=== PATIENT | male | born 1960 | race Caucasian/White ===

== ENCOUNTER 2016-10-14 21:22 | Emergency (ER) | payer BC ==
[2016-10-14] MEDS ORDERED: Albuterol/Ipratropium 3.0-0.5 MG/3 ML Neb Soln NEB ONE (21:35)
[2016-10-14] MEDS ORDERED: guaiFENesin 600 MG Tab.ER PO ONE (21:35)
[2016-10-14] MEDS ORDERED: Sodium Chloride 0.9% 1,000 ML IV ONE (21:35)
[2016-10-14] MEDS ORDERED: methylPREDNISolone Sodium Succinate 125 MG/2 ML SDV IVPUSH ONE (21:35)
--- NOTE | 2016-10-14 21:48 | EDM.PDOC ---
ED HPI GENERAL MEDICAL PROBLEM - General Chief Complaint: Respiratory Problem Stated Complaint: MEDICINE Time Seen by Provider: 10/14/16 21:37 Source of Information: Reports: Patient History Limitations: Reports: No Limitations - History of Present Illness INITIAL COMMENTS - FREE TEXT/NARRATIVE: History of present illness: [56-year-old male presenting with complaints of shortness of breath, and a dark green productive sputum cough. Indicates he was seen in doctor's office on Saturday and given a shot of steroid and it was indicated that he might need antibiotics to get better. Patient comes in today indicating he feels not only not better but significantly worse.] Review of systems: As per history of present illness and below otherwise all systems reviewed and negative. Past medical history: As per history of present illness and as reviewed below otherwise noncontributory. Surgical history: As per history of present illness and as reviewed below otherwise noncontributory. Social history: No reported history of drug or alcohol abuse. Family history: As per history of present illness and as reviewed below otherwise noncontributory. Physical exam: HEENT: Atraumatic, normocephalic, pupils reactive, negative for conjunctival pallor or scleral icterus, mucous membranes moist, throat clear, neck supple, nontender, trachea midline. Lungs: Diminished throughout with coarse bronchial vesicular sounds that improve somewhat with a loose wet cough chest nontender. Heart: S1S2, regular, negative for clicks, rubs, or JVD. Abdomen: Soft, nondistended, nontender. Negative for masses or hepatosplenomegaly. Negative for costovertebral tenderness. Pelvis: Stable nontender. Genitourinary: Deferred. Rectal: Deferred. Extremities: Atraumatic, negative for cords or calf pain. Neurovascular unremarkable. Neuro: Awake, alert, oriented. Cranial nerves II through XII unremarkable. Cerebellum unremarkable. Motor and sensory unremarkable throughout. Exam nonfocal. Diagnostics: [] Therapeutics: [DuraNeb, liter of saline, Solu-Medrol] Impression: [Bronchitis in the presence of chronic smoker] Plan: [Augmentin, Medrol Dosepak, Followup with primary care provider] Definitive disposition and diagnosis as appropriate pending reevaluation and review of above. Bilateral Thoracic Pain Score (Numeric/FACES): 7 - Related Data Allergies Allergy/AdvReac Type Severity Reaction Status Date / Time aloe vera Allergy Rash Verified 10/14/16 21:27 [From Lanacane with Aloe] bacitracin Allergy Rash Verified 10/14/16 21:27 benzethonium chloride Allergy Rash Verified 10/14/16 21:27 [From Lanacane with Aloe] benzocaine Allergy Rash Verified 10/14/16 21:27 [From Lanacane with Aloe] cephalexin monohydrate Allergy Other Verified 10/14/16 21:27 [From Keflex] Sulfa (Sulfonamide Allergy Other Verified 10/14/16 21:27 Antibiotics) cement dust Allergy Rash Uncoded 10/14/16 21:27 Home Meds: Home Meds Adalimumab [Humira] 1 injection IM ASDIRECTED 09/28/14 [History] Albuterol [Proair HFA] 1 - 2 inh PO ASDIRECTED PRN 09/28/14 [History] Aspirin [Halfprin] 81 mg PO DAILY 09/28/14 [History] Folic Acid 2 mg PO DAILY 09/28/14 [History] Hydrochlorothiazide/Lisinopril [Lisinopril-HCTZ 20-25 MG] 1 tab PO BRK 09/28/14 [History] LORazepam [Ativan] 1 mg PO BEDTIME PRN 09/28/14 [History] Methotrexate Sodium [Methotrexate] 15 mg PO WEEKLY 09/28/14 [History] Omeprazole 20 mg PO DAILY 09/28/14 [History] amLODIPine Besylate [Amlodipine Besylate] 2.5 mg PO BRK 09/28/14 [History] Erythromycin Base [Erythromycin 0.5% Ophth Oint] 1 applic EYEBOTH QIDACANDBED [History] Famotidine 20 mg PO DAILY 01/25/16 [History] Hydrocodone/Acetaminophen [[place] 10-325] 1 each PO BID PRN 01/25/16 [History] Hydrocodone/Acetaminophen [[place] 10-325] 1 tab PO BID PRN 01/25/16 [History] Ciprofloxacin HCl [Cipro] 500 mg PO BID #14 tablet 01/28/16 [Rx] Prednisone [IJD: Prednisone] 10 mg PO DAILY 15 Days 01/28/16 [Rx] Prednisone [IMW: predniSONE] 40 mg PO WITHBREAKFAST #10 tab 01/28/16 [Rx] metroNIDAZOLE [Flagyl] 500 mg PO Q12H #14 tablet 01/28/16 [Rx] Past Medical History HEENT History: Reports: Impaired Vision Cardiovascular History: Reports: Hypertension Gastrointestinal History: Reports: Other (See Below) Other Gastrointestinal History: Crohn's Musculoskeletal History: Reports: Back Pain, Chronic - Past Surgical History GI Surgical History: Reports: Cholecystectomy Social & Family History - Family History Family Medical History: Noncontributory - Tobacco Use Smoking Status *Q: Current Every Day Smoker Years of Tobacco use: 40 Packs/Tins Daily: 1 - Alcohol Use Days Per Week of Alcohol Use: 3 Number of Drinks Per Day: 8 Total Drinks Per Week: 24 - Recreational Drug Use Recreational Drug Use: No Drug Use in Last 12 Months: No ED ROS GENERAL - Review of Systems Review Of Systems: See Below (The history of present illness) ED EXAM, GENERAL - Physical Exam Exam: See Below (See history of present illness) Course - Vital Signs Last Recorded V/S: Last Vital Signs Temp 36.6 C 10/14/16 21:27 Pulse 103 H 10/14/16 21:27 Resp 20 10/14/16 21:27 BP 144/82 H 10/14/16 21:27 Pulse Ox 93 L 10/14/16 21:27 - Orders/Labs/Meds Orders: Active Orders 24 hr Category Date Time Status RT Aerosol Therapy [RC] ASDIRECTED Care 10/14/16 21:35 Ordered Sodium Chloride 0.9% [Normal Saline] 1,000 ml Med 10/14/16 21:35 Ordered IV STAT Medication Orders Sodium Chloride (Normal Saline) 1,000 mls @ 999 mls/hr IV STAT ONE Stop: 10/14/16 22:35 Meds: Medications Generic Name Dose Route Start Last Admin Trade Name Freq PRN Reason Stop Dose Admin Sodium Chloride 1,000 mls @ 999 mls/hr 10/14/16 21:35 Normal Saline IV 10/14/16 22:35 STAT ONE Discontinued Medications Generic Name Dose Route Start Last Admin Trade Name Freq PRN Reason Stop Dose Admin Albuterol/Ipratropium 3 ml 10/14/16 21:35 Duoneb 3.0-0.5 Mg/3 Ml NEB 10/14/16 21:36 ONETIME ONE Guaifenesin 1,200 mg 10/14/16 21:35 Mucinex PO 10/14/16 21:36 ONETIME ONE Methylprednisolone Sodium Succinate 125 mg 10/14/16 21:35 Solu-Medrol IVPUSH 10/14/16 21:36 ONETIME ONE Departure - Departure Time of Disposition: 21:39 Disposition: Home, Self-Care 01 Condition: good (z) Clinical Impression: Bronchitis - Discharge Information Instructions: Acute Bronchitis, [id number] Forms: ED Department Discharge Additional Instructions: The following information is given to patients seen in the emergency department who are being discharged to home. This information is to outline your options for follow-up care. We provide all patients seen in our emergency department with a follow-up referral. The need for follow-up, as well as the timing and circumstances, are variable depending upon the specifics of your emergency department visit. If you don't have a primary care physician on staff, we will provide you with a referral. We always advise you to contact your personal physician following an emergency department visit to inform them of the circumstance of the visit and for follow-up with them and/or the need for any referrals to a consulting specialist. The emergency department will also refer you to a specialist when appropriate. This referral assures that you have the opportunity for follow-up care with a specialist. All of these measure are taken in an effort to provide you with optimal care, which includes your follow-up. Under all circumstances we always encourage you to contact your private physician who remains a resource for coordinating your care. When calling for follow-up care, please make the office aware that this follow-up is from your recent emergency room visit. If for any reason you are refused follow-up, please contact the [facility] Emergency Department at and asked to speak to the emergency department charge nurse. Take medication as directed Followup with your primary care provider in one to 2 days Return to ED as needed as discussed - My Orders Last 24 Hours: My Active Orders 10/14/16 21:35 RT Aerosol Therapy [RC] ASDIRECTED Sodium Chloride 0.9% [Normal Saline] 1,000 ml IV STAT - Assessment/Plan Last 24 Hours: My Active Orders 10/14/16 21:35 RT Aerosol Therapy [RC] ASDIRECTED Sodium Chloride 0.9% [Normal Saline] 1,000 ml IV STAT
[2016-10-15 03:04] VITALS: BP 120/71
== END 2016-10-14 22:50 | disposition home or self-care (01) ==
LOC: MW.ED 21:22
DX: J40 Bronchitis, not specified as acute or chronic (principal); I10 Essential (primary) hypertension; F17.210 Nicotine dependence, cigarettes, uncomplicated; Z90.49 Acquired absence of other specified parts of digestive tract; Z79.82 Long term (current) use of aspirin; Z79.899 Other long term (current) drug therapy; Z88.1 Allergy status to other antibiotic agents; Z88.2 Allergy status to sulfonamides; Z91.048 Other nonmedicinal substance allergy status
CPT/HCPCS: 96361; 96374; 99283; A9270; J2930; J7040; 99284

== ENCOUNTER 2017-10-23 06:39 | Day surgery (SDC) | payer BC ==
[~2017-10-23 06:39] MED LIST: Lactated Ringers 1,000 ML IV SCH
--- NOTE | 2017-10-23 07:09 | PCM.PREANE ---
Preanesthetic Assessment - Anesthesia/Transfusion/Family Hx Anesthesia History: Prior Anesthesia Without Reaction Other Type of Anesthesia Reaction Comment: Reports awoke during endoscopy and colonoscopy in [place] Family History of Anesthesia Reaction: No Transfusion History: No Prior Transfusion(s) - Review of Systems General: No Symptoms Pulmonary: No Symptoms Cardiovascular: No Symptoms Gastrointestinal: No Symptoms Neurological: No Symptoms Other: Reports: None - Physical Assessment NPO Status Date: 10/29/17 Height: 1.73 m Weight: 80.286 kg ASA Class: 2 Airway Class: Mallampati = 1 Dentition: Reports: Normal Dentition ROM/Head Extension: Full Lungs: Clear to Auscultation, Normal Respiratory Effort Cardiovascular: Regular Rate, Regular Rhythm - Allergies Allergies/Adverse Reactions: Allergies Allergy/AdvReac Type Severity Reaction Status Date / Time aloe vera Allergy Rash Verified 10/18/17 11:07 [From Lanacane with Aloe] bacitracin Allergy Rash Verified 10/18/17 11:07 benzethonium chloride Allergy Rash Verified 10/18/17 11:07 [From Lanacane with Aloe] benzocaine Allergy Rash Verified 10/18/17 11:07 [From Lanacane with Aloe] cephalexin monohydrate Allergy Other Verified 10/18/17 11:07 [From Keflex] Sulfa (Sulfonamide Allergy Other Verified 10/18/17 11:07 Antibiotics) cement dust Allergy Rash Uncoded 10/18/17 11:07 - Blood Blood Available: No - Anesthesia Plan Pre-Op Medication Ordered: None - Acknowledgements Anesthesia Type Planned: MAC Pt an Appropriate Candidate for the Planned Anesthesia: Yes Alternatives and Risks of Anesthesia Discussed w Pt/Guardian: Yes Pt/Guardian Understands and Agrees with Anesthesia Plan: Yes PreAnesthesia Questionnaire HEENT History: Reports: Other (See Below) Other HEENT History: wears glasses, gets frequent "stys" in his eyes (uses tobradex ointment) Cardiovascular History: Reports: Hypertension Respiratory History: Reports: Other (See Below) Other Respiratory History: smokes 2 PPD for 35 years- currently has broken rib Gastrointestinal History: Reports: GERD, Inflammatory Bowel Disease Other Gastrointestinal History: has Crohns disease Musculoskeletal History: Reports: Fracture, Gout, RA Other Musculoskeletal History: currently has fractured rib Neurological History: Reports: Headaches, Chronic Immunologic History: Reports: Immunosuppression Dermatologic History: Reports: Other (See Below) Other Dermatologic History: 0ccasional dermatitis - Past Surgical History GI Surgical History: Reports: Cholecystectomy Male Surgical History: Reports: Vasectomy Dermatological Surgical History: Reports: Other (See Below) - SUBSTANCE USE Smoking Status *Q: Current Every Day Smoker Tobacco Use Within Last Twelve Months: Cigarettes Recreational Drug Use History: No - HOME MEDS Home Medications: Home Meds Adalimumab [Humira] 1 injection IM ASDIRECTED 09/28/14 [History] Aspirin [Halfprin] 81 mg PO DAILY 09/28/14 [History] Folic Acid 2 mg PO DAILY 09/28/14 [History] Omeprazole 20 mg PO DAILY 09/28/14 [History] Hydrocodone/Acetaminophen [[place] 10-325] 1 tab PO BID PRN 01/25/16 [History] Dexamethasone/Tobramycin [Tobradex Ophth Oint] 1 applic EYEBOTH ASDIRECTED PRN 10/18/17 [History] Lisinopril 20 mg PO DAILY 10/18/17 [History] Methotrexate Sodium/PF [Methotrexate 50 mg/2 ml Vial] 50 mg IM WEEKLY 10/18/17 [ History] Sildenafil Citrate [Sildenafil] 80 mg PO ASDIRECTED PRN 10/18/17 [History] predniSONE [Prednisone] 5 mg PO DAILY PRN 10/18/17 [History] - CURRENT (IN HOUSE) MEDS Current Meds: Current Medications Lactated Ringer's (Ringers, Lactated) 1,000 mls @ 125 mls/hr IV ASDIRECTED [facility]
[2017-10-23] MEDS ORDERED: Bupivacaine 0.5% 30 ML SDV ONE (07:17)
[2017-10-23] MEDS ORDERED: Midazolam 1 MG/ML 2 ML SDV ONE (07:23)
[2017-10-23] MEDS ORDERED: fentaNYL 100 MCG/2 ML SDV ONE (07:23)
[2017-10-23] MEDS ORDERED: Propofol 200 MG/20 ML SDV ONE ×2 (07:23→08:12)
[2017-10-23] MEDS ORDERED: Ondansetron 4 MG/2 ML SDV ONE (07:24)
[2017-10-23 07:45] VITALS: BP 137/80
[2017-10-23] MEDS ORDERED: Lidocaine 1% 20 ML MDV ONE (07:45)
[2017-10-23] MEDS ORDERED: ePHEDrine 50 MG/ML SDV ONE (08:18)
--- NOTE | 2017-10-23 08:36 | PCM.OPNOTE ---
- General Post-Op/Procedure Note Date of Surgery/Procedure: 10/23/17 Operative Procedure(s): Excision 3 x 3.5 cm right posterior neck mass Pre Op Diagnosis: Enlarging right posterior neck mass Post-Op Diagnosis: Same Anesthesia Technique: Local, MAC (ASA II) Primary Surgeon: Fox Ramos Fluid Replacement, Intraop: 800 EBL in mLs: 5 Condition: Good Free Text/Narrative:: DICTATION [id number] CPT CODE 18419
[2017-10-23] MEDS ORDERED: Lactated Ringers 1,000 ML IV SCH (08:45)
--- NOTE | 2017-10-23 08:50 | PCM48HPAN ---
Post Anesthesia Note - EVALUATION WITHIN 48HRS OF ANESTHETIC Vital Signs in Normal Range: Yes Patient Participated in Evaluation: Yes Respiratory Function Stable: Yes Airway Patent: Yes Cardiovascular Function Stable: Yes Hydration Status Stable: Yes Pain Control Satisfactory: Yes Nausea and Vomiting Control Satisfactory: Yes Mental Status Recovered: Yes Resp Rate: 16 - COMMENTS/OBSERVATIONS Free Text/Narrative:: phase 2 ready, bypassed phase 1 PACU.
--- NOTE | 2017-10-23 09:22 | OR ---
SURGEON: Fox Ramos M.D. DATE OF PROCEDURE: 10/23/2017 OPERATION PERFORMED: Excision of 3 x 3.5 cm right posterior neck mass. ANESTHESIA: Local with MAC. ASA CLASSIFICATION: II. PREOPERATIVE DIAGNOSIS: Enlarging right posterior neck mass. POSTOPERATIVE DIAGNOSIS: Enlarging right posterior neck mass. ESTIMATED BLOOD LOSS: 5 mL. INTRAOPERATIVE FLUID REPLACEMENT: 800 mL of crystalloid. DESCRIPTION OF PROCEDURE: The patient was taken to the operating room and placed on the operating table in the left lateral decubitus position. Time-out was called for appropriate identification of the patient and procedure. Surgical site had been marked prior to the patient entering the operating room. Monitored anesthesia care was provided. The surgical site was prepped with DuraPrep solution. Sterile drapes were applied. Field block anesthesia was accomplished with 5 mL of 1% Xylocaine and 5 mL of 0.5% Marcaine. The skin incision was made directly over the mass and deepened down to the mass. Clinically, this had the appearance of an inclusion cyst. Using a combination of sharp dissection and electrocautery, the mass was removed. Bleeding sites were electrocoagulated. The wound was inspected for hemostasis, and no bleeding was noted. There was no spill of sebaceous cyst material. The incision was then closed in 2 layers approximating the subcutaneous tissue with running 3-0 Vicryl, and the skin edges were reapproximated with subcuticular 4-0 Monocryl reinforced with half-inch Steri- Strips. Sterile Tegaderm pad was placed as a dressing. Sponge, needle, and instrument counts were all correct. The patient tolerated the procedure well and was taken back to Day Surgery in satisfactory condition. ASHLI / SANTY /[id number]
== END 2017-10-23 09:05 | disposition home or self-care (01) ==
LOC: MW.SDS 06:39
PROVIDERS: ATTEND Surgery
DX: L72.3 Sebaceous cyst (principal); I10 Essential (primary) hypertension; F17.210 Nicotine dependence, cigarettes, uncomplicated; K21.9 Gastro-esophageal reflux disease without esophagitis; Z79.82 Long term (current) use of aspirin; Z79.899 Other long term (current) drug therapy; Z88.4 Allergy status to anesthetic agent; Z88.1 Allergy status to other antibiotic agents; Z88.2 Allergy status to sulfonamides; Z91.048 Other nonmedicinal substance allergy status
CPT/HCPCS: 11424; 12042; 88304; J2250; J2405; J3010; J7120; 00300; J2704

== ENCOUNTER 2018-07-25 10:38 | Day surgery (SDC) | payer BC ==
--- NOTE | 2018-07-25 11:27 | PCM.PREANE ---
Preanesthetic Assessment - Procedure Proposed Procedure: colonoscopy - Anesthesia/Transfusion/Family Hx Anesthesia History: Prior Anesthesia Without Reaction Other Type of Anesthesia Reaction Comment: Reports awoke during endoscopy and colonoscopy in [place] Family History of Anesthesia Reaction: Yes (sister has complications but they are unknown) Transfusion History: No Prior Transfusion(s) - Review of Systems General: No Symptoms Pulmonary: Other (smoker 1ppk/day, frequent rhinitis) Cardiovascular: No Symptoms, Other (HTN) Gastrointestinal: Abdominal Pain, Other (chrons disease, GERD) Neurological: Other (RA, chronic pain on narcotics, migraines) Other: Reports: Neck Pain - Physical Assessment Height: 5 ft 7 in Weight: 81.193 kg ASA Class: 2 Mental Status: Alert & Oriented x3 Airway Class: Mallampati = 2 Dentition: Reports: Normal Dentition Thyro-Mental Finger Breadths: 3 Mouth Opening Finger Breadths: 3 ROM/Head Extension: Full Lungs: Clear to Auscultation Cardiovascular: Regular Rate - Allergies Allergies/Adverse Reactions: Allergies Allergy/AdvReac Type Severity Reaction Status Date / Time aloe vera Allergy Rash Verified 07/21/18 12:15 [From Lanacane with Aloe] bacitracin Allergy Rash Verified 07/21/18 12:14 benzethonium chloride Allergy Rash Verified 07/21/18 12:14 [From Lanacane with Aloe] benzocaine Allergy Rash Verified 07/21/18 12:14 [From Lanacane with Aloe] cephalexin monohydrate Allergy Other Verified 07/21/18 12:14 [From Keflex] neomycin Allergy Rash Verified 07/21/18 12:14 [From Neosporin ([id number])] polymyxin B Allergy Rash Verified 07/21/18 12:14 [From Neosporin ([id number])] Sulfa (Sulfonamide Allergy Other Verified 07/21/18 12:14 Antibiotics) cement dust Allergy Rash Uncoded 10/18/17 11:07 - Blood Blood Available: No Product(s) Available: None - Anesthesia Plan Pre-Op Medication Ordered: None - Acknowledgements Anesthesia Type Planned: MAC Pt an Appropriate Candidate for the Planned Anesthesia: Yes Alternatives and Risks of Anesthesia Discussed w Pt/Guardian: Yes Pt/Guardian Understands and Agrees with Anesthesia Plan: Yes PreAnesthesia Questionnaire HEENT History: Reports: Hard of Hearing Other HEENT History: hard of hearing in right ear, wears glasses Cardiovascular History: Reports: Hypertension, Other (See Below) Other Cardiovascular History: hx of rheumatic fever Respiratory History: Reports: Other (See Below) Other Respiratory History: smokes 2 PPD for 35 years- currently has broken rib Gastrointestinal History: Reports: Chronic Diarrhea, GERD, Inflammatory Bowel Disease Other Gastrointestinal History: has Crohns disease Musculoskeletal History: Reports: Back Pain, Chronic, Fracture, Gout, Neck Pain , Chronic, RA Other Musculoskeletal History: hx of fx arm Neurological History: Reports: Migraines Immunologic History: Reports: Immunosuppression Dermatologic History: Reports: Psoriasis Other Dermatologic History: 0ccasional dermatitis - Past Surgical History GI Surgical History: Reports: Cholecystectomy, Colonoscopy, EGD Male Surgical History: Reports: Vasectomy Dermatological Surgical History: Reports: Other (See Below) - SUBSTANCE USE Smoking Status *Q: Current Every Day Smoker Tobacco Use Within Last Twelve Months: Cigarettes Recreational Drug Use History: No - HOME MEDS Home Medications: Home Meds Aspirin [Halfprin] 81 mg PO DAILY 09/28/14 [History] Folic Acid 2 mg PO DAILY 09/28/14 [History] Omeprazole 20 mg PO DAILY 09/28/14 [History] Hydrocodone/Acetaminophen [[place] 10-325] 1 tab PO BID PRN 01/25/16 [History] Lisinopril 40 mg PO QAM 10/18/17 [History] Methotrexate Sodium/PF [Methotrexate 50 mg/2 ml Vial] 50 mg IM WEEKLY 10/18/17 [ History] Sildenafil Citrate [Sildenafil] 80 mg PO ASDIRECTED PRN 10/18/17 [History] predniSONE [Prednisone] 5 mg PO DAILY PRN 10/18/17 [History] Albuterol Sulfate [Proair Hfa] 2 puff INH Q4H PRN 07/21/18 [History] Halobetasol Propionate 1 applic TOP BID PRN 07/21/18 [History] - CURRENT (IN HOUSE) MEDS Current Meds: Current Medications Lactated Ringer's (Ringers, Lactated) 1,000 mls @ 125 mls/hr IV ASDIRECTED REPLACED BY [facility]
[2018-07-25] MEDS ORDERED: Midazolam 1 MG/ML 2 ML SDV ONE (12:39)
[2018-07-25] MEDS ORDERED: fentaNYL 100 MCG/2 ML SDV ONE (12:40)
[2018-07-25] MEDS ORDERED: Propofol 200 MG/20 ML SDV ONE ×2 (12:41→13:14)
[2018-07-25] MEDS ORDERED: Lidocaine 2% 5 ML SDV ONE (12:41)
[2018-07-25] MEDS ORDERED: Dexamethasone 4 MG/ML 5 ML MDV ONE (12:53)
--- NOTE | 2018-07-25 13:35 | PCM.OPNOTE ---
- General Post-Op/Procedure Note Date of Surgery/Procedure: 07/25/18 Operative Procedure(s): Colonoscopy with random biopsies from the cecum, ascending colon, transverse colon, sigmoid colon and rectum. Pre Op Diagnosis: Personal history of Crohn's disease Post-Op Diagnosis: Pancolonic diverticulosis Anesthesia Technique: MAC (ASA II) Primary Surgeon: Fox Ramos Wet End Helper: Lisa Hernández Condition: Good Free Text/Narrative:: DICTATION [id number] CPT CODE 17478
[2018-07-25] MEDS ORDERED: Lactated Ringers 1,000 ML IV SCH (13:45)
--- NOTE | 2018-07-25 13:55 | OR ---
SURGEON: Fox Ramos M.D. DATE OF PROCEDURE: 07/25/2018 OPERATION PERFORMED: Colonoscopy with random biopsies. DESIGN ENGINEERING MANAGER: PATRICK Pan student. ANESTHESIA: MAC. ASA CLASSIFICATION: II. PREOPERATIVE DIAGNOSIS: Personal history of active Crohn disease. POSTOPERATIVE DIAGNOSIS: No acute inflammatory process. DESCRIPTION OF PROCEDURE: The patient was taken to the endoscopy room and positioned on the endoscopy table in the left lateral decubitus position. Time-out was called for appropriate identification of the patient and procedure. Monitored anesthesia care was provided. The colonoscope was inserted into the rectum and advanced with minimal difficulty to the cecum where the colonoscope was retroflexed to visualize the ascending colon from below. The colonoscope was then straightened and slowly withdrawn. Random biopsies were obtained from the cecum, ascending colon, transverse colon, sigmoid colon, and rectum. No acute inflammatory changes or ulcerations were noted. In addition to postop diagnosis, does include pancolonic diverticulosis. Once the colonoscope was withdrawn to the rectum, multiple biopsies were again obtained to survey the level of activity of his Crohn disease. The colonoscope was then retroflexed to visualize the anal orifice from above. The patient does have some minor hemorrhoidal changes. No acute changes were noted. Certainly, no bleeding was noted. The colonoscope was then straightened, the rectum aspirated, and the colonoscope removed. The patient tolerated the procedure well and was taken to recovery room in stable condition. ASHLI MADERA /[id number]
--- NOTE | 2018-07-25 13:55 | PCM.POSTAN ---
POST ANESTHESIA ASSESSMENT - MENTAL STATUS Mental Status: Alert - VITAL SIGNS Pulse Rate: 74 SaO2: 98 Resp Rate: 16 Blood Pressure: 115/79 Temperature: 37 C - RESPIRATORY Respiratory Status: Respiratory Rate WNL - CARDIOVASCULAR CV Status: Pulse Rate WNL - GASTROINTESTINAL GI Status: No Symptoms - PAIN Pain Score: 0 - POST OP HYDRATION Hydration Status: Adequate & Stable - OBSERVATIONS Free Text/Narrative:: Doing well. No anesthesia problems noted.
--- NOTE | 2018-07-25 14:09 | PCM48HPAN ---
Post Anesthesia Note - EVALUATION WITHIN 48HRS OF ANESTHETIC Vital Signs in Normal Range: Yes Patient Participated in Evaluation: Yes Respiratory Function Stable: Yes Airway Patent: Yes Cardiovascular Function Stable: Yes Hydration Status Stable: Yes Pain Control Satisfactory: Yes Nausea and Vomiting Control Satisfactory: Yes Mental Status Recovered: Yes Pulse Rate: 74 SaO2: 97 Resp Rate: 16 Temperature: 37 C Blood Pressure: 115/79 - COMMENTS/OBSERVATIONS Free Text/Narrative:: Doing well. No problems noted at present. Discharged in stable condition.
[2018-07-25 14:36] VITALS: BP 153/77
== END 2018-07-25 14:10 | disposition home or self-care (01) ==
LOC: MW.SDS 10:38
PROVIDERS: ATTEND Surgery
DX: Z12.11 Encounter for screening for malignant neoplasm of colon (principal); K50.90 Crohn's disease, unspecified, without complications; K57.30 Diverticulosis of large intestine without perforation or abscess without bleeding; K64.9 Unspecified hemorrhoids; K21.9 Gastro-esophageal reflux disease without esophagitis; I10 Essential (primary) hypertension; F17.210 Nicotine dependence, cigarettes, uncomplicated; M54.17 Radiculopathy, lumbosacral region; M06.9 Rheumatoid arthritis, unspecified; Z88.1 Allergy status to other antibiotic agents; Z88.2 Allergy status to sulfonamides; Z88.8 Allergy status to other drugs, medicaments and biological substances; Z80.0 Family history of malignant neoplasm of digestive organs; Z79.82 Long term (current) use of aspirin; Z79.52 Long term (current) use of systemic steroids; Z79.899 Other long term (current) drug therapy
CPT/HCPCS: 45380; J1100; J2001; J2250; J2704; J3010; J7120; 88305

== ENCOUNTER 2021-03-24 15:08 | Observation (INO) | payer BC, MEDICAID ==
[2021-03-24] MEDS ORDERED: Aspirin 81 MG Tab.Chew PO ONE ×2 (15:55→15:57)
[2021-03-24] MEDS ORDERED: Morphine 4 MG/ML VIAL IVPUSH ONE ×2 (15:56→17:03)
[2021-03-24] MEDS ORDERED: Sodium Chloride 0.9% 1,000 ML IV ONE (15:58)
[2021-03-24 16:42] LABS: BLOOD UREA NITROGEN,BUN 8 mg/dL (7.0-18.0); CARBON DIOXIDE,CO2 24.4 mmol/L (21.0-32.0); CHLORIDE,CL 97 mmol/L (98-107); GLUCOSE RANDOM 107 mg/dL (74-106); POTASSIUM,K 3.6 mmol/L (3.5-5.1); SODIUM,NA 135 mmol/L (136-148)
--- NOTE | 2021-03-24 17:06 | CR ---
INDICATION: Chest pain TECHNIQUE: Portable upright AP view of the chest COMPARISON: AP chest radiograph 01/25/2016 FINDINGS: The lungs are clear. There is no sizable pleural effusion or pneumothorax. The cardiomediastinal silhouette is normal. The visualized osseous structures are unremarkable. IMPRESSION: No acute intrathoracic process. Dictated by Yoel Ocampo MD @ 03/24/2021 5:04:31 PM (Electronically Signed)
--- NOTE | 2021-03-24 17:38 | PCM.EKG ---
#1 Interpretation EKG Interpretation Comments: EKG done 03/24/2021 at 3:19 PM shows a sinus tachycardia heart rate 109 DC [address] [place] [address] elevation and no prior available at the immediate moment impression no acute injury
[2021-03-24] MEDS ORDERED: Iopamidol 755 MG/ML 500 ML Multipack Bottle IVPUSH STA (18:16)
[2021-03-24] MEDS ORDERED: Nicotine 14 MG/24 Hr Patch TRDERM ONE (18:37)
--- NOTE | 2021-03-24 19:27 | CT ---
INDICATION: Chest pain and elevated D-dimer TECHNIQUE: CT chest PE was acquired with 100 cc Omnipaque 350 IV contrast. COMPARISON: None. FINDINGS: Heart and vasculature: Contrast opacification of the pulmonary arterial tree is adequate. No sign of pulmonary embolism. Ascending thoracic aorta measures 4.1 centimeters with mild atherosclerosis including coronary atherosclerosis. Lungs and pleural: Trace left pleural fluid. Mild centrilobular emphysema. Trace discoid atelectasis. Lymph nodes/mediastinum: No mediastinal, hilar, or axillary adenopathy. Chest wall: No masses. Upper abdomen: Mild nonspecific fat stranding surrounding the kidneys. Bones: Unremarkable for age. IMPRESSION: 1. No evidence of pulmonary embolus. 2. Trace left pleural effusion. 3. Mild centrilobular emphysema. 4. Mild fusiform enlargement of the ascending thoracic aorta measuring 4.1 centimeters. Please note that all CT scans at this facility use dose modulation, iterative reconstruction, and/or weight-based dosing when appropriate to reduce radiation dose to as low as reasonably achievable. Dictated by Mamadou Cortez MD @ 03/24/2021 7:26:17 PM (Electronically Signed)
--- NOTE | 2021-03-24 19:47 | EDM.PDOC ---
ED HPI GENERAL MEDICAL PROBLEM - General Chief Complaint: Chest Pain Stated Complaint: CHEST PAIN Time Seen by Provider: 03/24/21 15:48 Source of Information: Reports: Patient History Limitations: Reports: No Limitations - History of Present Illness INITIAL COMMENTS - FREE TEXT/NARRATIVE: HISTORY AND PHYSICAL: History of present illness: Patient is a 61-year-old male who presents emergency room today with concern of chest pain that he describes as exertional and woke him up from sleep. Patient states that has been constant and does get worse with exertion. Patient states that he initially thought it was heartburn so did take Tums without relief of symptoms. Patient does have a history of hypertension, a 2 pack/day smoking history, GERD, and Crohn's/psoriasis. Patient states he did take 1 baby aspirin this morning. Patient states that he has some associated nausea but states that he has not vomited. Patient denies fever, chills, shortness of breath, or cough. Denies headache, neck stiff ness, change in vision, syncope, or near syncope. Denies nausea, vomiting, abdominal pain, diarrhea, constipation, or dysuria. Has not noted any blood in urine or stool. Patient has been eating and drinking appropriately. Review of systems: As per history of present illness and below otherwise all systems reviewed and negative. Past medical history: As per history of present illness and as reviewed below otherwise noncontributory. Surgical history: As per history of present illness and as reviewed below otherwise noncontributory. Social history: See social history for further information Family history: As per history of present illness and as reviewed below otherwise noncontributory. Physical exam: General: Patient is alert, oriented, and in no acute distress. Patient laying comfortably on exam table. Vitals stable and reviewed by me. HEENT: Atraumatic, normocephalic, pupils equal and reactive bilaterally, negative for conjunctival pallor or scleral icterus, mucous membranes moist, throat clear, neck supple, nontender, trachea midline. No drooling or trismus noted. No meningeal signs. No hot potato voice noted. Lungs: Clear to auscultation, breath sounds equal bilaterally, chest nontender. Heart: S1S2, regular rate and rhythm without overt murmur Abdomen: Soft, nondistended, nontender. Negative for masses or hepatosplenomegaly. Negative for costovertebral tenderness. Pelvis: Stable nontender. Genitourinary: Deferred. Rectal: Deferred. Skin: Intact, warm, dry. No lesions or rashes noted. Extremities: Atraumatic, negative for cords or calf pain. Neurovascular unremarkable. Neuro: Awake, alert, oriented. Cranial nerves II through XII unremarkable. Cerebellum unremarkable. Motor and sensory unremarkable throughout. Exam nonfocal. Medical Decision Making: Patient is a 61-year-old male, with a history of hypertension, 2 pack/day smoking history, GERD, and Crohn's/psoriasis, who presents emergency room today with concern of exertional chest pain. Upon arrival to the ED, patient is vitally stable. Patient is laying comfortably on exam table but he is holding his chest area. Exam is otherwise unremarkable. Will obtain cardiac evaluation, D-dimer, provide morphine, and reassess patient. See Dr. Sung's dictation for specific EKG interpretation. However, sinus tachycardia with a rate of 109 without STEMI. CBC does show a mild leukocytosis at 11.78, otherwise mild derangements of CBC unremarkable. D-dimer is elevated at 0.8 so will obtain angiography chest. Patient does have mild hyponatremia at 137, hypochloremia of 97. Troponin negative. Otherwise mild derangements of CMP unremarkable. Urinalysis is clear of infection. COVID-19 is negative. Chest x-ray shows no acute intrathoracic process. Angiography of the chest shows no evidence of pulmonary embolism. Trace left pleural effusion. Mild centrilobular emphysema. Mild fusiform enlargement of the ascending thoracic aorta measuring 4.1 cm. Repeat troponin negative. However, given patient's history, with concern of exertional chest pain, and coronary artery disease seen on imaging, did recommend admission for observation. Upon reevaluation of patient, he expresses some improvement of his symptoms with therapeutics today in the ED. I did call and speak to the hospitalist on-call, Dr. Gama, and thoroughly discussed patient's case. Will admit to observation to Dr. Gama on telemetry. Voices understanding and is agreeable to plan of care. Denies any further questions or concerns at this time. Diagnostics: EKG, CBC, CMP, UA, chest x-ray, troponin, D-dimer, angiography chest Therapeutics: Aspirin, morphine Impression: Chest pain, rule out ACS Plan: Admit to observation to Dr. Gama on telemetry Definitive disposition and diagnosis as appropriate pending reevaluation and review of above. chest Pain Score (Numeric/FACES): 6 - Related Data Allergies Allergy/AdvReac Type Severity Reaction Status Date / Time aloe vera Allergy Rash Verified 07/21/18 12:15 [From Lanacane with Aloe] bacitracin Allergy Rash Verified 07/21/18 12:14 benzethonium chloride Allergy Rash Verified 07/21/18 12:14 [From Lanacane with Aloe] benzocaine Allergy Rash Verified 07/21/18 12:14 [From Lanacane with Aloe] cephalexin monohydrate Allergy Other Verified 07/21/18 12:14 [From Keflex] neomycin Allergy Rash Verified 07/21/18 12:14 [From Neosporin ([id number])] polymyxin B Allergy Rash Verified 07/21/18 12:14 [From Neosporin ([id number])] Sulfa (Sulfonamide Allergy Other Verified 07/21/18 12:14 Antibiotics) cement dust Allergy Rash Uncoded 10/18/17 11:07 Home Meds: Home Meds Aspirin [Halfprin] 81 mg PO DAILY 09/28/14 [History] Folic Acid 2 mg PO DAILY 09/28/14 [History] Omeprazole 20 mg PO DAILY 09/28/14 [History] Hydrocodone/Acetaminophen [[place] 10-325] 1 tab PO BID PRN 01/25/16 [History] Lisinopril 40 mg PO QAM 10/18/17 [History] Methotrexate Sodium/PF [Methotrexate 50 mg/2 ml Vial] 50 mg IM WEEKLY 10/18/17 [History] Sildenafil Citrate 80 mg PO ASDIRECTED PRN 10/18/17 [History] predniSONE [Prednisone] 5 mg PO DAILY PRN 10/18/17 [History] Albuterol Sulfate [Proair Hfa] 2 puff INH Q4H PRN 07/21/18 [History] Halobetasol Propionate 1 applic TOP BID PRN 07/21/18 [History] Past Medical History HEENT History: Reports: Hard of Hearing Other HEENT History: hard of hearing in right ear, wears glasses Cardiovascular History: Reports: Hypertension, Other (See Below) Other Cardiovascular History: hx of rheumatic fever Respiratory History: Reports: Other (See Below) Other Respiratory History: smokes 2 PPD for 35 years- currently has broken rib Gastrointestinal History: Reports: Chronic Diarrhea, GERD, Inflammatory Bowel Disease Other Gastrointestinal History: has Crohns disease Musculoskeletal History: Reports: Back Pain, Chronic, Fracture, Gout, Neck Pain, Chronic, RA Other Musculoskeletal History: hx of fx arm Neurological History: Reports: Migraines Immunologic History: Reports: Immunosuppression Dermatologic History: Reports: Psoriasis Other Dermatologic History: 0ccasional dermatitis - Infectious Disease History Infectious Disease History: Reports: Chicken Pox - Past Surgical History GI Surgical History: Reports: Cholecystectomy, Colonoscopy, EGD Male Surgical History: Reports: Vasectomy Dermatological Surgical History: Reports: Other (See Below) Social & Family History - Family History Family Medical History: No Pertinent Family History ED ROS GENERAL - Review of Systems Review Of Systems: Comprehensive ROS is negative, except as noted in HPI. ED EXAM, GENERAL - Physical Exam Exam: See Below (see dictation) Course - Vital Signs Last Recorded V/S: Last Vital Signs Temp 97.9 F 03/24/21 21:07 Pulse 81 03/24/21 21:07 Resp 17 03/24/21 21:07 BP 144/86 H 03/24/21 21:07 Pulse Ox 98 03/24/21 21:07 - Orders/Labs/Meds Orders: Active Orders 24 hr Category Date Time Status Cardiac Monitoring [RC] . DIRECTED Care 03/24/21 15:55 Active Medication Orders Acetaminophen (Acetaminophen 325 Mg Tab) 650 mg PO Q4H PRN PRN Reason: Pain (Mild 1-3)/fever Albuterol/Ipratropium (Albuterol/Ipratropium 3.0-0.5 Mg/3 Ml Neb Soln) 3 ml NEB Q4HRRT PRN PRN Reason: Shortness Of Breath/wheezing Aspirin (Aspirin 81 Mg Tab.Ec) 81 mg PO DAILY MISBAH Pantoprazole Sodium 40 mg/ (Sodium Chloride) 10 mls @ 300 mls/hr IV Q24H MIS[facility] Morphine Sulfate (Morphine 2 Mg/Ml Syringe) 2 mg IVPUSH Q4H PRN PRN Reason: Pain (severe 7-10) Non-Formulary Medication (Lisinopril) 40 mg PO QAM MISBAH Ondansetron HCl (Ondansetron 4 Mg/2 Ml Sdv) 4 mg IVPUSH Q4H PRN PRN Reason: Pain Prednisone (Prednisone 5 Mg Tab) 5 mg PO DAILY PRN PRN Reason: Edema Labs: Laboratory Tests 03/24/21 03/24/21 03/24/21 Range/Units 15:45 15:45 15:45 WBC 11.78 H (4.0-11.0) K/uL RBC 3.82 L (4.50-5.90) M/uL Hgb 13.3 (13.0-17.0) g/dL Hct 39.1 (38.0-50.0) % MCV 102.4 H (80.0-98.0) fL MCH 34.8 H (27.0-32.0) pg MCHC 34.0 (31.0-37.0) g/dL RDW Std Deviation 52.2 (28.0-62.0) fl RDW Coeff of [place] 14 (11.0-15.0) % Plt Count 356 (150-400) K/uL MPV 9.20 (7.40-12.00) fL Neut % (Auto) 83.3 H (48.0-80.0) % Lymph % (Auto) 8.7 L (16.0-40.0) % [place] % (Auto) 7.6 (0.0-15.0) % Eos % (Auto) 0.2 (0.0-7.0) % Baso % (Auto) 0.2 (0.0-1.5) % Neut # (Auto) 9.8 H (1.4-5.7) K/uL Lymph # (Auto) 1.0 (0.6-2.4) K/uL [place] # (Auto) 0.9 H (0.0-0.8) K/uL Eos # (Auto) 0.0 (0.0-0.7) K/uL Baso # (Auto) 0.0 (0.0-0.1) K/uL Nucleated RBC % 0.0 /100WBC Nucleated RBCs # 0 K/uL INR 0.98 APTT (18.6-31.3) SEC D-Dimer, Quantitative (0.0-0.50) mg/L FEU Sodium 135 L (136-148) mmol/L Potassium 3.6 (3.5-5.1) mmol/L Chloride 97 L (98-107) mmol/L Carbon Dioxide 24.4 (21.0-32.0) mmol/L BUN 8 (7.0-18.0) mg/dL Creatinine 0.7 L (0.8-1.3) mg/dL Est Cr Clr Drug Dosing TNP Estimated GFR (MDRD) > 60.0 ml/min Glucose 107 H (74-106) mg/dL Calcium 8.8 (8.5-10.1) mg/dL Total Bilirubin 0.7 (0.2-1.0) mg/dL AST 20 (15-37) IU/L ALT 29 (14-63) IU/L Alkaline Phosphatase 87 (46-116) U/L Troponin I < 0.050 (0.000-0.056) ng/mL Total Protein 8.0 (6.4-8.2) g/dL Albumin 3.1 L (3.4-5.0) g/dL Globulin 4.9 H (2.6-4.0) g/dL Albumin/Globulin Ratio 0.6 L (0.9-1.6) Lipase (73-393) U/L SARS-CoV-2 RNA (DARLIN) (NEGATIVE) 03/24/21 03/24/21 03/24/21 Range/Units 15:45 15:45 15:45 WBC (4.0-11.0) K/uL RBC (4.50-5.90) M/uL Hgb (13.0-17.0) g/dL Hct (38.0-50.0) % MCV (80.0-98.0) fL MCH (27.0-32.0) pg MCHC (31.0-37.0) g/dL RDW Std Deviation (28.0-62.0) fl RDW Coeff of [place] (11.0-15.0) % Plt Count (150-400) K/uL MPV (7.40-12.00) fL Neut % (Auto) (48.0-80.0) % Lymph % (Auto) (16.0-40.0) % [place] % (Auto) (0.0-15.0) % Eos % (Auto) (0.0-7.0) % Baso % (Auto) (0.0-1.5) % Neut # (Auto) (1.4-5.7) K/uL Lymph # (Auto) (0.6-2.4) K/uL [place] # (Auto) (0.0-0.8) K/uL Eos # (Auto) (0.0-0.7) K/uL Baso # (Auto) (0.0-0.1) K/uL Nucleated RBC % /100WBC Nucleated RBCs # K/uL INR APTT 27.7 (18.6-31.3) SEC D-Dimer, Quantitative 0.80 H (0.0-0.50) mg/L FEU Sodium (136-148) mmol/L Potassium (3.5-5.1) mmol/L Chloride (98-107) mmol/L Carbon Dioxide (21.0-32.0) mmol/L BUN (7.0-18.0) mg/dL Creatinine (0.8-1.3) mg/dL Est Cr Clr Drug Dosing Estimated GFR (MDRD) ml/min Glucose (74-106) mg/dL Calcium (8.5-10.1) mg/dL Total Bilirubin (0.2-1.0) mg/dL AST (15-37) IU/L ALT (14-63) IU/L Alkaline Phosphatase (46-116) U/L Troponin I (0.000-0.056) ng/mL Total Protein (6.4-8.2) g/dL Albumin (3.4-5.0) g/dL Globulin (2.6-4.0) g/dL Albumin/Globulin Ratio (0.9-1.6) Lipase 21 L (73-393) U/L SARS-CoV-2 RNA (DARLIN) (NEGATIVE) 03/24/21 03/24/21 Range/Units 17:01 18:46 WBC (4.0-11.0) K/uL RBC (4.50-5.90) M/uL Hgb (13.0-17.0) g/dL Hct (38.0-50.0) % MCV (80.0-98.0) fL MCH (27.0-32.0) pg MCHC (31.0-37.0) g/dL RDW Std Deviation (28.0-62.0) fl RDW Coeff of [place] (11.0-15.0) % Plt Count (150-400) K/uL MPV (7.40-12.00) fL Neut % (Auto) (48.0-80.0) % Lymph % (Auto) (16.0-40.0) % [place] % (Auto) (0.0-15.0) % Eos % (Auto) (0.0-7.0) % Baso % (Auto) (0.0-1.5) % Neut # (Auto) (1.4-5.7) K/uL Lymph # (Auto) (0.6-2.4) K/uL [place] # (Auto) (0.0-0.8) K/uL Eos # (Auto) (0.0-0.7) K/uL Baso # (Auto) (0.0-0.1) K/uL Nucleated RBC % /100WBC Nucleated RBCs # K/uL INR APTT (18.6-31.3) SEC D-Dimer, Quantitative (0.0-0.50) mg/L FEU Sodium (136-148) mmol/L Potassium (3.5-5.1) mmol/L Chloride (98-107) mmol/L Carbon Dioxide (21.0-32.0) mmol/L BUN (7.0-18.0) mg/dL Creatinine (0.8-1.3) mg/dL Est Cr Clr Drug Dosing Estimated GFR (MDRD) ml/min Glucose (74-106) mg/dL Calcium (8.5-10.1) mg/dL Total Bilirubin (0.2-1.0) mg/dL AST (15-37) IU/L ALT (14-63) IU/L Alkaline Phosphatase (46-116) U/L Troponin I < 0.050 (0.000-0.056) ng/mL Total Protein (6.4-8.2) g/dL Albumin (3.4-5.0) g/dL Globulin (2.6-4.0) g/dL Albumin/Globulin Ratio (0.9-1.6) Lipase (73-393) U/L SARS-CoV-2 RNA (DARLIN) NEGATIVE (NEGATIVE) Meds: Medications Generic Name Dose Route Start Last Admin Trade Name Freq PRN Reason Stop Dose Admin Acetaminophen 650 mg 03/24/21 21:37 Acetaminophen 325 Mg Tab PO Q4H PRN Pain (Mild 1-3)/fever Albuterol/Ipratropium 3 ml 03/24/21 21:37 Albuterol/Ipratropium 3.0-0.5 Mg/3 Ml Neb Soln NEB Q4HRRT PRN Shortness Of Breath/wheezing Aspirin 81 mg 03/25/21 09:00 Aspirin 81 Mg Tab.Ec PO DAILY MISBAH Pantoprazole Sodium 40 mg/ 10 mls @ 300 mls/hr 03/24/21 22:00 Sodium Chloride IV Q24H MISBAH Morphine Sulfate 2 mg 03/24/21 21:44 Morphine 2 Mg/Ml Syringe IVPUSH Q4H PRN Pain (severe 7-10) Non-Formulary Medication 40 mg 03/25/21 09:00 Lisinopril PO QAM MISBAH Ondansetron HCl 4 mg 03/24/21 21:37 Ondansetron 4 Mg/2 Ml Sdv IVPUSH Q4H PRN Pain Prednisone 5 mg 03/24/21 21:43 Prednisone 5 Mg Tab PO DAILY PRN Edema Discontinued Medications Generic Name Dose Route Start Last Admin Trade Name Freq PRN Reason Stop Dose Admin Aspirin 324 mg 03/24/21 15:55 03/24/21 16:18 Aspirin 81 Mg Tab.Chew PO 03/24/21 15:56 Not Given ONETIME ONE Aspirin 244 mg 03/24/21 15:57 03/24/21 16:17 Aspirin 81 Mg Tab.Chew PO 03/24/21 15:58 244 mg ONETIME ONE Administration Sodium Chloride 1,000 mls @ 999 mls/hr 03/24/21 15:58 03/24/21 16:18 Normal Saline IV 03/24/21 16:58 999 mls/hr STAT ONE Administration Iopamidol 100 ml 03/24/21 18:16 03/24/21 18:16 Iopamidol 755 Mg/Ml 500 Ml Multipack Bottle IVPUSH 03/24/21 18:17 100 ml ONETIME STA Administration Morphine Sulfate 4 mg 03/24/21 15:56 03/24/21 16:17 Morphine 4 Mg/Ml Vial IVPUSH 03/24/21 15:57 4 mg ONETIME ONE Administration Morphine Sulfate 4 mg 03/24/21 17:03 03/24/21 17:21 Morphine 4 Mg/Ml Vial IVPUSH 03/24/21 17:04 4 mg ONETIME ONE Administration Nicotine 14 mg 03/24/21 18:37 03/24/21 18:45 Nicotine 14 Mg/24 Hr Patch TRDERM 03/24/21 18:38 14 mg ONETIME ONE Administration Departure - Departure Time of Disposition: 19:47 Disposition: Refer to Observation Clinical Impression: Chest pain, rule out acute myocardial infarction - Discharge Information Sepsis Event Note (ED) - Evaluation Sepsis Screening Result: No Definite Risk - Focused Exam Vital Signs: Vital Signs Temp Pulse Resp BP Pulse Ox 03/24/21 18:51 88 18 143/86 H 96 03/24/21 17:40 86 129/70 94 L 03/24/21 17:09 83 136/79 96 03/24/21 16:39 86 148/80 H 97 03/24/21 16:05 91 133/84 95 03/24/21 15:53 97.0 F 95 18 139/94 H 96 - My Orders Last 24 Hours: My Active Orders 03/24/21 15:55 Cardiac Monitoring [RC] . DIRECTED - Assessment/Plan Last 24 Hours: My Active Orders 03/24/21 15:55 Cardiac Monitoring [RC] . DIRECTED
[2021-03-24] MEDS ORDERED: Acetaminophen 325 MG Tab PO PRN (21:37)
[2021-03-24] MEDS ORDERED: Ondansetron 4 MG/2 ML SDV IVPUSH PRN (21:37)
[2021-03-24] MEDS ORDERED: Albuterol/Ipratropium 3.0-0.5 MG/3 ML Neb Soln NEB PRN (21:37)
[2021-03-24] MEDS ORDERED: Morphine 4 MG/ML VIAL IVPUSH PRN (21:37)
--- NOTE | 2021-03-24 21:43 | PCM.HP.2 ---
H&P History of Present Illness - General Date of Service: 03/25/21 Admit Problem/Dx: Admission Diagnosis/Problem Admission Diagnosis/Problem Chest pain - History of Present Illness Initial Comments - Free Text/Narative: Patient is a 61-year-old male with history of hypertension, a 2 pack/day smoking history, GERD, and Crohn's/psoriasis. who presents emergency room today with concern of chest pain that he describes as exertional and woke him up from sleep. Patient states that has been constant and does get worse with exertion. Patient states that he initially thought it was heartburn so did take Tums witho ut relief of symptoms. Patient does have a Patient states he did take 1 baby aspirin this morning. Patient states that he has some associated nausea but states that he has not vomited. EKG done 03/24/2021 shows a sinus tachycardia heart rate [address] [address] elevation, no acute injury. Patients troponin was elevationwas negative. Patient was admitted for ACS rule out. chest Pain Score (Numeric/FACES): 6 - Related Data Allergies/Adverse Reactions: Allergies Allergy/AdvReac Type Severity Reaction Status Date / Time aloe vera Allergy Rash Verified 07/21/18 12:15 [From Lanacane with Aloe] bacitracin Allergy Rash Verified 07/21/18 12:14 benzethonium chloride Allergy Rash Verified 07/21/18 12:14 [From Lanacane with Aloe] benzocaine Allergy Rash Verified 07/21/18 12:14 [From Lanacane with Aloe] cephalexin monohydrate Allergy Other Verified 07/21/18 12:14 [From Keflex] neomycin Allergy Rash Verified 07/21/18 12:14 [From Neosporin ([id number])] polymyxin B Allergy Rash Verified 07/21/18 12:14 [From Neosporin ([id number])] Sulfa (Sulfonamide Allergy Other Verified 07/21/18 12:14 Antibiotics) cement dust Allergy Rash Uncoded 10/18/17 11:07 Home Medications: Home Meds Aspirin [Halfprin] 81 mg PO DAILY 09/28/14 [History] Folic Acid 2 mg PO DAILY 09/28/14 [History] Omeprazole 20 mg PO DAILY 09/28/14 [History] Hydrocodone/Acetaminophen [[place] 10-325] 1 tab PO BID PRN 01/25/16 [History] Lisinopril 40 mg PO QAM 10/18/17 [History] Methotrexate Sodium/PF [Methotrexate 50 mg/2 ml Vial] 50 mg IM WEEKLY 10/18/17 [History] Sildenafil Citrate 80 mg PO ASDIRECTED PRN 10/18/17 [History] predniSONE [Prednisone] 5 mg PO ASDIRECTED PRN 10/18/17 [History] Albuterol Sulfate [Proair Hfa] 2 puff INH Q4H PRN 07/21/18 [History] Halobetasol Propionate 1 applic TOP BID PRN 07/21/18 [History] Past Medical History HEENT History: Reports: Hard of Hearing Other HEENT History: hard of hearing in right ear, wears glasses Cardiovascular History: Reports: Hypertension, Other (See Below) Other Cardiovascular History: hx of rheumatic fever Respiratory History: Reports: Other (See Below) Other Respiratory History: smokes 2 PPD for 35 years- currently has broken rib Gastrointestinal History: Reports: Chronic Diarrhea, GERD, Inflammatory Bowel Disease Other Gastrointestinal History: has Crohns disease Musculoskeletal History: Reports: Back Pain, Chronic, Fracture, Gout, Neck Pain, Chronic, RA Other Musculoskeletal History: hx of fx arm Neurological History: Reports: Migraines Immunologic History: Reports: Immunosuppression Dermatologic History: Reports: Psoriasis Other Dermatologic History: 0ccasional dermatitis - Infectious Disease History Infectious Disease History: Reports: Chicken Pox - Past Surgical History GI Surgical History: Reports: Cholecystectomy, Colonoscopy, EGD Male Surgical History: Reports: Vasectomy Dermatological Surgical History: Reports: Other (See Below) Social & Family History - Family History Family Medical History: No Pertinent Family History H&P Review of Systems - Review of Systems: Review Of Systems: See Below General: Denies: Fever, Chills, Malaise, Weakness Pulmonary: Denies: Shortness of Breath, Wheezing, Pleuritic Chest Pain Cardiovascular: Reports: Chest Pain. Denies: Palpitations, Dyspnea on Exertion, Orthopnea Gastrointestinal: Denies: Abdominal Pain, Anorexia, Black Stool, Bloody Stool, Constipation Genitourinary: Denies: Dysuria, Frequency, Burning Musculoskeletal: Reports: Arm Pain. Denies: Neck Pain, Shoulder Pain Skin: Denies: Cyanosis, Jaundice, Change in Hair/Nails Psychiatric: Denies: Depression, Mood Lability, Anxiety Neurological: Denies: Confusion, Dizziness, Headache, Numbness Hematologic/Lymphatic: Denies: Easy Bleeding, Easy Bruising, Swollen Glands Exam - Exam Exam: See Below - Vital Signs Vital Signs: Last Vital Signs Temp 36.6 C 03/24/21 21:07 Pulse 81 03/24/21 21:07 Resp 17 03/24/21 21:07 BP 144/86 H 03/24/21 21:07 Pulse Ox 98 03/24/21 21:07 Weight: 72.575 kg - Exam Quality Assessment: Supplemental Oxygen General: Alert, Oriented Neck: Supple Lungs: Clear to Auscultation, Normal Respiratory Effort Cardiovascular: Regular Rate, Regular Rhythm, Normal S1, Normal S2 GI/Abdominal Exam: Normal Bowel Sounds, Soft, Tender. No: Abnormal Bowel Sounds, Hernia, Hepatomegaly, Splenomegaly Extremities: Normal Inspection, Normal Range of Motion - Patient Data Lab Results Last 24 hrs: Laboratory Results - last 24 hr 03/24/21 03/24/21 03/24/21 Range/Units 15:45 15:45 15:45 WBC 11.78 H (4.0-11.0) K/uL RBC 3.82 L (4.50-5.90) M/uL Hgb 13.3 (13.0-17.0) g/dL Hct 39.1 (38.0-50.0) % MCV 102.4 H (80.0-98.0) fL MCH 34.8 H (27.0-32.0) pg MCHC 34.0 (31.0-37.0) g/dL RDW Std Deviation 52.2 (28.0-62.0) fl RDW Coeff of [place] 14 (11.0-15.0) % Plt Count 356 (150-400) K/uL MPV 9.20 (7.40-12.00) fL Neut % (Auto) 83.3 H (48.0-80.0) % Lymph % (Auto) 8.7 L (16.0-40.0) % [place] % (Auto) 7.6 (0.0-15.0) % Eos % (Auto) 0.2 (0.0-7.0) % Baso % (Auto) 0.2 (0.0-1.5) % Neut # (Auto) 9.8 H (1.4-5.7) K/uL Lymph # (Auto) 1.0 (0.6-2.4) K/uL [place] # (Auto) 0.9 H (0.0-0.8) K/uL Eos # (Auto) 0.0 (0.0-0.7) K/uL Baso # (Auto) 0.0 (0.0-0.1) K/uL Nucleated RBC % 0.0 /100WBC Nucleated RBCs # 0 K/uL INR 0.98 APTT (18.6-31.3) SEC D-Dimer, Quantitative (0.0-0.50) mg/L FEU Sodium 135 L (136-148) mmol/L Potassium 3.6 (3.5-5.1) mmol/L Chloride 97 L (98-107) mmol/L Carbon Dioxide 24.4 (21.0-32.0) mmol/L BUN 8 (7.0-18.0) mg/dL Creatinine 0.7 L (0.8-1.3) mg/dL Est Cr Clr Drug Dosing TNP Estimated GFR (MDRD) > 60.0 ml/min Glucose 107 H (74-106) mg/dL Calcium 8.8 (8.5-10.1) mg/dL Total Bilirubin 0.7 (0.2-1.0) mg/dL AST 20 (15-37) IU/L ALT 29 (14-63) IU/L Alkaline Phosphatase 87 (46-116) U/L Troponin I < 0.050 (0.000-0.056) ng/mL Total Protein 8.0 (6.4-8.2) g/dL Albumin 3.1 L (3.4-5.0) g/dL Globulin 4.9 H (2.6-4.0) g/dL Albumin/Globulin Ratio 0.6 L (0.9-1.6) Lipase (73-393) U/L Urine Color Urine Appearance Urine pH (5.0-8.0) Ur Specific [place] (1.001-1.035) Urine Protein (NEGATIVE) mg/dL Urine Glucose (UA) (NEGATIVE) mg/dL Urine Ketones (NEGATIVE) mg/dL Urine Occult Blood (NEGATIVE) Urine Nitrite (NEGATIVE) Urine Bilirubin (NEGATIVE) Urine Urobilinogen (<2.0) EU/dL Ur Leukocyte Esterase (NEGATIVE) SARS-CoV-2 RNA (DARLIN) (NEGATIVE) 03/24/21 03/24/21 03/24/21 Range/Units 15:45 15:45 15:45 WBC (4.0-11.0) K/uL RBC (4.50-5.90) M/uL Hgb (13.0-17.0) g/dL Hct (38.0-50.0) % MCV (80.0-98.0) fL MCH (27.0-32.0) pg MCHC (31.0-37.0) g/dL RDW Std Deviation (28.0-62.0) fl RDW Coeff of [place] (11.0-15.0) % Plt Count (150-400) K/uL MPV (7.40-12.00) fL Neut % (Auto) (48.0-80.0) % Lymph % (Auto) (16.0-40.0) % [place] % (Auto) (0.0-15.0) % Eos % (Auto) (0.0-7.0) % Baso % (Auto) (0.0-1.5) % Neut # (Auto) (1.4-5.7) K/uL Lymph # (Auto) (0.6-2.4) K/uL [place] # (Auto) (0.0-0.8) K/uL Eos # (Auto) (0.0-0.7) K/uL Baso # (Auto) (0.0-0.1) K/uL Nucleated RBC % /100WBC Nucleated RBCs # K/uL INR APTT 27.7 (18.6-31.3) SEC D-Dimer, Quantitative 0.80 H (0.0-0.50) mg/L FEU Sodium (136-148) mmol/L Potassium (3.5-5.1) mmol/L Chloride (98-107) mmol/L Carbon Dioxide (21.0-32.0) mmol/L BUN (7.0-18.0) mg/dL Creatinine (0.8-1.3) mg/dL Est Cr Clr Drug Dosing Estimated GFR (MDRD) ml/min Glucose (74-106) mg/dL Calcium (8.5-10.1) mg/dL Total Bilirubin (0.2-1.0) mg/dL AST (15-37) IU/L ALT (14-63) IU/L Alkaline Phosphatase (46-116) U/L Troponin I (0.000-0.056) ng/mL Total Protein (6.4-8.2) g/dL Albumin (3.4-5.0) g/dL Globulin (2.6-4.0) g/dL Albumin/Globulin Ratio (0.9-1.6) Lipase 21 L (73-393) U/L Urine Color Urine Appearance Urine pH (5.0-8.0) Ur Specific [place] (1.001-1.035) Urine Protein (NEGATIVE) mg/dL Urine Glucose (UA) (NEGATIVE) mg/dL Urine Ketones (NEGATIVE) mg/dL Urine Occult Blood (NEGATIVE) Urine Nitrite (NEGATIVE) Urine Bilirubin (NEGATIVE) Urine Urobilinogen (<2.0) EU/dL Ur Leukocyte Esterase (NEGATIVE) SARS-CoV-2 RNA (DARLIN) (NEGATIVE) 03/24/21 03/24/21 03/24/21 Range/Units 17:01 18:46 20:05 WBC (4.0-11.0) K/uL RBC (4.50-5.90) M/uL Hgb (13.0-17.0) g/dL Hct (38.0-50.0) % MCV (80.0-98.0) fL MCH (27.0-32.0) pg MCHC (31.0-37.0) g/dL RDW Std Deviation (28.0-62.0) fl RDW Coeff of [place] (11.0-15.0) % Plt Count (150-400) K/uL MPV (7.40-12.00) fL Neut % (Auto) (48.0-80.0) % Lymph % (Auto) (16.0-40.0) % [place] % (Auto) (0.0-15.0) % Eos % (Auto) (0.0-7.0) % Baso % (Auto) (0.0-1.5) % Neut # (Auto) (1.4-5.7) K/uL Lymph # (Auto) (0.6-2.4) K/uL [place] # (Auto) (0.0-0.8) K/uL Eos # (Auto) (0.0-0.7) K/uL Baso # (Auto) (0.0-0.1) K/uL Nucleated RBC % /100WBC Nucleated RBCs # K/uL INR APTT (18.6-31.3) SEC D-Dimer, Quantitative (0.0-0.50) mg/L FEU Sodium (136-148) mmol/L Potassium (3.5-5.1) mmol/L Chloride (98-107) mmol/L Carbon Dioxide (21.0-32.0) mmol/L BUN (7.0-18.0) mg/dL Creatinine (0.8-1.3) mg/dL Est Cr Clr Drug Dosing Estimated GFR (MDRD) ml/min Glucose (74-106) mg/dL Calcium (8.5-10.1) mg/dL Total Bilirubin (0.2-1.0) mg/dL AST (15-37) IU/L ALT (14-63) IU/L Alkaline Phosphatase (46-116) U/L Troponin I < 0.050 (0.000-0.056) ng/mL Total Protein (6.4-8.2) g/dL Albumin (3.4-5.0) g/dL Globulin (2.6-4.0) g/dL Albumin/Globulin Ratio (0.9-1.6) Lipase (73-393) U/L Urine Color YELLOW Urine Appearance CLEAR Urine pH 7.5 (5.0-8.0) Ur Specific [place] 1.010 (1.001-1.035) Urine Protein NEGATIVE (NEGATIVE) mg/dL Urine Glucose (UA) NEGATIVE (NEGATIVE) mg/dL Urine Ketones NEGATIVE (NEGATIVE) mg/dL Urine Occult Blood NEGATIVE (NEGATIVE) Urine Nitrite NEGATIVE (NEGATIVE) Urine Bilirubin NEGATIVE (NEGATIVE) Urine Urobilinogen 1.0 (<2.0) EU/dL Ur Leukocyte Esterase NEGATIVE (NEGATIVE) SARS-CoV-2 RNA (DARLIN) NEGATIVE (NEGATIVE) Result Diagrams: 03/25/21 06:15 03/25/21 06:15 Sepsis Event Note - Evaluation Sepsis Screening Result: No Definite Risk - Focused Exam Vital Signs: Vital Signs Temp Pulse Resp BP Pulse Ox 03/24/21 21:07 36.6 C 81 17 144/86 H 98 03/24/21 18:51 88 18 143/86 H 96 03/24/21 17:40 86 129/70 94 L 03/24/21 17:09 83 136/79 96 03/24/21 16:39 86 148/80 H 97 03/24/21 16:05 91 133/84 95 03/24/21 15:53 36.1 C 95 18 139/94 H 96 - Problem List (1) Chest pain, rule out acute myocardial infarction SNOMED Code(s): 21284623 ICD Code: R07.9 - CHEST PAIN, UNSPECIFIED Status: Acute Current Visit: Yes (2) HTN (hypertension) SNOMED Code(s): 16718273 ICD Code: I10 - ESSENTIAL (PRIMARY) HYPERTENSION Status: Acute Current Visit: No (3) Rheumatoid arthritis SNOMED Code(s): 06750545 ICD Code: M06.9 - RHEUMATOID ARTHRITIS, UNSPECIFIED Status: Acute Current Visit: No (4) Crohn disease SNOMED Code(s): 15289567 ICD Code: K50.90 - CROHN'S DISEASE, UNSPECIFIED, WITHOUT COMPLICATIONS Status: Chronic Current Visit: No Qualifiers: Gastrointestinal tract location: unspecified location Problem List Initiated/Reviewed/Updated: Yes Orders Last 24hrs: Active Orders 24 hr Category Date Time Status Admission Status [Patient Status] [ADT] Stat ADT 03/24/21 19:46 Active Ambulate [RC] ASDIRECTED Care 03/24/21 21:37 Active Antiembolic Devices [RC] PER UNIT ROUTINE Care 03/24/21 21:38 Active Cardiac Monitoring [RC] . DIRECTED Care 03/24/21 15:55 Active Oxygen Therapy [RC] PRN Care 03/24/21 21:37 Active RT Aerosol Therapy [RC] ASDIRECTED Care 03/24/21 21:40 Active VTE/DVT Education [RC] PER UNIT ROUTINE Care 03/24/21 21:37 Active Vital Signs [RC] Q4H Care 03/24/21 21:37 Active Heart Healthy Diet [DIET] Diet 03/24/21 Breakfast Active GLYCOSYLATED HEMOGLOBIN,HGBA1C [CHEM] Routine Lab 03/24/21 21:42 Ordered LIPID PANEL [CHEM] Routine Lab 03/24/21 21:42 Ordered TROPONIN I [CHEM] Routine Lab 03/24/21 22:00 Ordered TSH REFLEX TO FREE T4 [CHEM] Routine Lab 03/24/21 21:42 Ordered Acetaminophen [TylenoL] Med 03/24/21 21:37 Ordered 650 mg PO Q4H PRN Albuterol/Ipratropium [DuoNeb 3.0-0.5 MG/3 ML] Med 03/24/21 21:37 Ordered 3 ml NEB Q4HRRT PRN Morphine Med 03/24/21 21:37 Ordered 2 mg IVPUSH Q4H PRN Ondansetron [Zofran] Med 03/24/21 21:37 Ordered 4 mg IVPUSH Q4H PRN Pantoprazole [ProTONIX IV] Med 03/24/21 21:45 Ordered 40 mg IV DAILY Sequential Compression Device [OM.PC] Per Unit Routine Oth 03/24/21 21:38 Ordered Resuscitation Status Routine Resus Stat 03/24/21 21:37 Ordered Medication Orders Acetaminophen (Acetaminophen 325 Mg Tab) 650 mg PO Q4H PRN PRN Reason: Pain (Mild 1-3)/fever Albuterol/Ipratropium (Albuterol/Ipratropium 3.0-0.5 Mg/3 Ml Neb Soln) 3 ml NEB Q4HRRT PRN PRN Reason: Shortness Of Breath/wheezing Morphine Sulfate (Morphine 4 Mg/Ml Vial) 2 mg IVPUSH Q4H PRN PRN Reason: Pain (severe 7-10) Stop: 03/25/21 21:38 Ondansetron HCl (Ondansetron 4 Mg/2 Ml Sdv) 4 mg IVPUSH Q4H PRN PRN Reason: Pain Pantoprazole Sodium (Pantoprazole 40 Mg Vial) 40 mg IV DAILY [facility] Assessment/Plan Comment:: 61 y/o M admitted for ACS rule out EKG noted, troponin X2 negative, will trend one more troponin Check HbA1c, Lipid, TSH start ASA, statin cont to monitor on tele IV morphine for pain cont to monitor closely needs stress test upon dc Needs 2D ECHO upon dc, unavailable here over weekend
[2021-03-24] MEDS ORDERED: Morphine 2 MG/ML SYRINGE IVPUSH PRN (21:44)
[2021-03-24] MEDS ORDERED: Pantoprazole 40 MG Vial IV SCH (21:45)
[2021-03-24 21:57] LABS: HEMOGLOBIN A1C 5.4 %
[2021-03-24] MEDS ORDERED: Pantoprazole 40 MG in Sodium Chloride 0.9% 10 ML IV SCH (22:00)
[2021-03-24] MEDS ORDERED: Nitroglycerin 0.4 MG Tab.SL SL PRN (23:00)
[2021-03-24] MEDS: HYDROmorphone 1 MG/ML Syringe IVPUSH PRN (23:21)
[2021-03-25] MEDS: HYDROmorphone 1 MG/ML Syringe IVPUSH PRN (06:26)
[2021-03-25 07:08] LABS: BLOOD UREA NITROGEN,BUN 7 mg/dL (7.0-18.0); CARBON DIOXIDE,CO2 23.6 mmol/L (21.0-32.0); CHLORIDE,CL 100 mmol/L (98-107); GLUCOSE RANDOM 95 mg/dL (74-106); POTASSIUM,K 4.1 mmol/L (3.5-5.1); SODIUM,NA 135 mmol/L (136-148)
[2021-03-25] MEDS ORDERED: Lisinopril 10 MG Tab PO SCH (09:00)
[2021-03-25] MEDS ORDERED: Aspirin 81 MG Tab.EC PO SCH (09:00)
[2021-03-25] MEDS ORDERED: predniSONE 5 MG Tab PO PRN (09:00)
[2021-03-25] MEDS ORDERED: Nitroglycerin 0.4 MG Tab.SL SL PRN (10:00)
[2021-03-25] MEDS ORDERED: Pantoprazole 40 MG in Sodium Chloride 0.9% 10 ML IV ONE (10:00)
[2021-03-25] MEDS ORDERED: Morphine 2 MG/ML SYRINGE IVPUSH ONE (11:02)
[2021-03-25] MEDS ORDERED: Ketorolac 30 MG/ML SDV IVPUSH ONE (11:03)
[2021-03-25] MEDS ORDERED: methylPREDNISolone Sodium Succinate 125 MG/2 ML SDV IVPUSH ONE (11:03)
[2021-03-25] MEDS ORDERED: Enoxaparin 150 MG/1 ML Syringe SUBCUT ONE (12:30)
[2021-03-25] MEDS ORDERED: Enoxaparin 60 MG/0.6 ML Syringe ONE (14:48)
--- NOTE | 2021-03-25 14:58 | PCM.DCSUM1 ---
Discharge Summary - Hospital Course Free Text/Narrative:: Patient is a 61-year-old male with history of hypertension, a 2 pack/day smoking history, GERD, and Crohn's/psoriasis. who presents emergency room today with concern of chest pain that he describes as exertional and woke him up from sleep. Patient states that has been constant and does get worse with exertion. Patient states that he initially thought it was heartburn so did take Tums without relief of symptoms. Patient does have a Patient states he did take 1 baby aspirin this morning. Patient states that he has some associated nausea but states that he has not vomited. EKG done 03/24/2021 shows a sinus tachycardia heart rate 109 AR [address] [place] [address] elevation, no acute injury. Patients troponin was elevation was negative. Patient was admitted for ACS rule out. This AM patient continued to have chest pain, 3 sets of tropnon were negative, sublingual nitrate didn't help, IV morphine helped a little, 4th set of troponin was obtained this AM in view of continued pain radiating to his shoulder, the troponin was was high, EKG showed <1mm ST eelavtions in Lead II, III, aVF. Given high troponin and chest pain patient had to be transferred out to a higher level of care facility for possible cardiac angiogram. patient was anticoagulated with Lovenox and shipped to [facility], [place] [facility] physician being cardiology, Dr Eaton. - Discharge Data Discharge Date: 03/25/21 Discharge Disposition: DC/Tfer to Acute Hospital 02 Condition: Stable - Referral to Home Health Primary Care Physician: En Jones MD - Discharge Diagnosis/Problem(s) (1) Chest pain, rule out acute myocardial infarction SNOMED Code(s): 04542166 ICD Code: R07.9 - CHEST PAIN, UNSPECIFIED Status: Acute Current Visit: Yes (2) HTN (hypertension) SNOMED Code(s): 48894813 ICD Code: I10 - ESSENTIAL (PRIMARY) HYPERTENSION Status: Acute Current Visit: No (3) Rheumatoid arthritis SNOMED Code(s): 19383831 ICD Code: M06.9 - RHEUMATOID ARTHRITIS, UNSPECIFIED Status: Acute Current Visit: No (4) Crohn disease SNOMED Code(s): 36400574 ICD Code: K50.90 - CROHN'S DISEASE, UNSPECIFIED, WITHOUT COMPLICATIONS Status: Chronic Current Visit: No Qualifiers: Gastrointestinal tract location: unspecified location - Patient Instructions Diet: Heart Healthy Diet Activity: As Tolerated - Discharge Plan *PRESCRIPTION DRUG MONITORING PROGRAM REVIEWED*: No *COPY OF PRESCRIPTION DRUG MONITORING REPORT IN PATIENT HERBERT: No Home Medications: Home Meds Aspirin [Halfprin] 81 mg PO DAILY 09/28/14 [History] Folic Acid 2 mg PO DAILY 09/28/14 [History] Omeprazole 20 mg PO DAILY 09/28/14 [History] Hydrocodone/Acetaminophen [[place] 10-325] 1 tab PO BID PRN 01/25/16 [History] Lisinopril 40 mg PO QAM 10/18/17 [History] Methotrexate Sodium/PF [Methotrexate 50 mg/2 ml Vial] 50 mg IM WEEKLY 10/18/17 [History] Sildenafil Citrate 80 mg PO ASDIRECTED PRN 10/18/17 [History] predniSONE [Prednisone] 5 mg PO ASDIRECTED PRN 10/18/17 [History] Albuterol Sulfate [Proair Hfa] 2 puff INH Q4H PRN 07/21/18 [History] Halobetasol Propionate 1 applic TOP BID PRN 07/21/18 [History] Forms: ED Department Discharge Referrals: Elsy Renner MD [Physician] - (Nurse will call with an appointment for follow-up) En Jones MD [Primary Care Provider] - (Nurse will call for an appointment for follow-up) - Discharge Summary/Plan Comment DC Time >30 min.: Yes Total # of Minutes for Discharge Time: 40 - Patient Data Vitals - Most Recent: Last Vital Signs Temp 36.6 C 03/25/21 09:01 Pulse 90 03/25/21 09:01 Resp 18 03/25/21 09:01 BP 119/81 03/25/21 10:09 Pulse Ox 96 03/25/21 09:01 Weight - Most Recent: 77.428 kg I&O - Last 24 hours: Intake & Output 03/24/21 03/25/21 03/25/21 22:59 06:59 14:59 Intake Total 350 Output Total 0 Balance 350 Lab Results - Last 24 hrs: Laboratory Results - last 24 hr 03/24/21 03/24/21 03/24/21 Range/Units 15:45 15:45 15:45 WBC 11.78 H (4.0-11.0) K/uL RBC 3.82 L (4.50-5.90) M/uL Hgb 13.3 (13.0-17.0) g/dL Hct 39.1 (38.0-50.0) % MCV 102.4 H (80.0-98.0) fL MCH 34.8 H (27.0-32.0) pg MCHC 34.0 (31.0-37.0) g/dL RDW Std Deviation 52.2 (28.0-62.0) fl RDW Coeff of [place] 14 (11.0-15.0) % Plt Count 356 (150-400) K/uL MPV 9.20 (7.40-12.00) fL Neut % (Auto) 83.3 H (48.0-80.0) % Lymph % (Auto) 8.7 L (16.0-40.0) % [place] % (Auto) 7.6 (0.0-15.0) % Eos % (Auto) 0.2 (0.0-7.0) % Baso % (Auto) 0.2 (0.0-1.5) % Neut # (Auto) 9.8 H (1.4-5.7) K/uL Lymph # (Auto) 1.0 (0.6-2.4) K/uL [place] # (Auto) 0.9 H (0.0-0.8) K/uL Eos # (Auto) 0.0 (0.0-0.7) K/uL Baso # (Auto) 0.0 (0.0-0.1) K/uL Nucleated RBC % 0.0 /100WBC Nucleated RBCs # 0 K/uL INR 0.98 APTT (18.6-31.3) SEC D-Dimer, Quantitative (0.0-0.50) mg/L FEU Sodium 135 L (136-148) mmol/L Potassium 3.6 (3.5-5.1) mmol/L Chloride 97 L (98-107) mmol/L Carbon Dioxide 24.4 (21.0-32.0) mmol/L BUN 8 (7.0-18.0) mg/dL Creatinine 0.7 L (0.8-1.3) mg/dL Est Cr Clr Drug Dosing TNP Estimated GFR (MDRD) > 60.0 ml/min Glucose 107 H (74-106) mg/dL Hemoglobin A1c (4.5 - 6.2) % Calcium 8.8 (8.5-10.1) mg/dL Total Bilirubin 0.7 (0.2-1.0) mg/dL AST 20 (15-37) IU/L ALT 29 (14-63) IU/L Alkaline Phosphatase 87 (46-116) U/L Troponin I < 0.050 (0.000-0.056) ng/mL Total Protein 8.0 (6.4-8.2) g/dL Albumin 3.1 L (3.4-5.0) g/dL Globulin 4.9 H (2.6-4.0) g/dL Albumin/Globulin Ratio 0.6 L (0.9-1.6) Triglycerides (0-200) mg/dL Cholesterol (50-200) mg/dL LDL Cholesterol, Calc (60-180) mg/dL VLDL Cholesterol (5-55) mg/dL HDL Cholesterol (40-60) mg/dL Cholesterol/HDL Ratio (3.3-6.0) Lipase (73-393) U/L TSH, Ultra Sensitive (0.36-3.74) uIU/mL Urine Color Urine Appearance Urine pH (5.0-8.0) Ur Specific [place] (1.001-1.035) Urine Protein (NEGATIVE) mg/dL Urine Glucose (UA) (NEGATIVE) mg/dL Urine Ketones (NEGATIVE) mg/dL Urine Occult Blood (NEGATIVE) Urine Nitrite (NEGATIVE) Urine Bilirubin (NEGATIVE) Urine Urobilinogen (<2.0) EU/dL Ur Leukocyte Esterase (NEGATIVE) SARS-CoV-2 RNA (DARLIN) (NEGATIVE) 03/24/21 03/24/21 03/24/21 Range/Units 15:45 15:45 15:45 WBC (4.0-11.0) K/uL RBC (4.50-5.90) M/uL Hgb (13.0-17.0) g/dL Hct (38.0-50.0) % MCV (80.0-98.0) fL MCH (27.0-32.0) pg MCHC (31.0-37.0) g/dL RDW Std Deviation (28.0-62.0) fl RDW Coeff of [place] (11.0-15.0) % Plt Count (150-400) K/uL MPV (7.40-12.00) fL Neut % (Auto) (48.0-80.0) % Lymph % (Auto) (16.0-40.0) % [place] % (Auto) (0.0-15.0) % Eos % (Auto) (0.0-7.0) % Baso % (Auto) (0.0-1.5) % Neut # (Auto) (1.4-5.7) K/uL Lymph # (Auto) (0.6-2.4) K/uL [place] # (Auto) (0.0-0.8) K/uL Eos # (Auto) (0.0-0.7) K/uL Baso # (Auto) (0.0-0.1) K/uL Nucleated RBC % /100WBC Nucleated RBCs # K/uL INR APTT 27.7 (18.6-31.3) SEC D-Dimer, Quantitative 0.80 H (0.0-0.50) mg/L FEU Sodium (136-148) mmol/L Potassium (3.5-5.1) mmol/L Chloride (98-107) mmol/L Carbon Dioxide (21.0-32.0) mmol/L BUN (7.0-18.0) mg/dL Creatinine (0.8-1.3) mg/dL Est Cr Clr Drug Dosing Estimated GFR (MDRD) ml/min Glucose (74-106) mg/dL Hemoglobin A1c (4.5 - 6.2) % Calcium (8.5-10.1) mg/dL Total Bilirubin (0.2-1.0) mg/dL AST (15-37) IU/L ALT (14-63) IU/L Alkaline Phosphatase (46-116) U/L Troponin I (0.000-0.056) ng/mL Total Protein (6.4-8.2) g/dL Albumin (3.4-5.0) g/dL Globulin (2.6-4.0) g/dL Albumin/Globulin Ratio (0.9-1.6) Triglycerides (0-200) mg/dL Cholesterol (50-200) mg/dL LDL Cholesterol, Calc (60-180) mg/dL VLDL Cholesterol (5-55) mg/dL HDL Cholesterol (40-60) mg/dL Cholesterol/HDL Ratio (3.3-6.0) Lipase 21 L (73-393) U/L TSH, Ultra Sensitive (0.36-3.74) uIU/mL Urine Color Urine Appearance Urine pH (5.0-8.0) Ur Specific [place] (1.001-1.035) Urine Protein (NEGATIVE) mg/dL Urine Glucose (UA) (NEGATIVE) mg/dL Urine Ketones (NEGATIVE) mg/dL Urine Occult Blood (NEGATIVE) Urine Nitrite (NEGATIVE) Urine Bilirubin (NEGATIVE) Urine Urobilinogen (<2.0) EU/dL Ur Leukocyte Esterase (NEGATIVE) SARS-CoV-2 RNA (DARLIN) (NEGATIVE) 03/24/21 03/24/21 03/24/21 Range/Units 15:45 17:01 18:46 WBC (4.0-11.0) K/uL RBC (4.50-5.90) M/uL Hgb (13.0-17.0) g/dL Hct (38.0-50.0) % MCV (80.0-98.0) fL MCH (27.0-32.0) pg MCHC (31.0-37.0) g/dL RDW Std Deviation (28.0-62.0) fl RDW Coeff of [place] (11.0-15.0) % Plt Count (150-400) K/uL MPV (7.40-12.00) fL Neut % (Auto) (48.0-80.0) % Lymph % (Auto) (16.0-40.0) % [place] % (Auto) (0.0-15.0) % Eos % (Auto) (0.0-7.0) % Baso % (Auto) (0.0-1.5) % Neut # (Auto) (1.4-5.7) K/uL Lymph # (Auto) (0.6-2.4) K/uL [place] # (Auto) (0.0-0.8) K/uL Eos # (Auto) (0.0-0.7) K/uL Baso # (Auto) (0.0-0.1) K/uL Nucleated RBC % /100WBC Nucleated RBCs # K/uL INR APTT (18.6-31.3) SEC D-Dimer, Quantitative (0.0-0.50) mg/L FEU Sodium (136-148) mmol/L Potassium (3.5-5.1) mmol/L Chloride (98-107) mmol/L Carbon Dioxide (21.0-32.0) mmol/L BUN (7.0-18.0) mg/dL Creatinine (0.8-1.3) mg/dL Est Cr Clr Drug Dosing Estimated GFR (MDRD) ml/min Glucose (74-106) mg/dL Hemoglobin A1c 5.4 (4.5 - 6.2) % Calcium (8.5-10.1) mg/dL Total Bilirubin (0.2-1.0) mg/dL AST (15-37) IU/L ALT (14-63) IU/L Alkaline Phosphatase (46-116) U/L Troponin I < 0.050 (0.000-0.056) ng/mL Total Protein (6.4-8.2) g/dL Albumin (3.4-5.0) g/dL Globulin (2.6-4.0) g/dL Albumin/Globulin Ratio (0.9-1.6) Triglycerides (0-200) mg/dL Cholesterol (50-200) mg/dL LDL Cholesterol, Calc (60-180) mg/dL VLDL Cholesterol (5-55) mg/dL HDL Cholesterol (40-60) mg/dL Cholesterol/HDL Ratio (3.3-6.0) Lipase (73-393) U/L TSH, Ultra Sensitive (0.36-3.74) uIU/mL Urine Color Urine Appearance Urine pH (5.0-8.0) Ur Specific [place] (1.001-1.035) Urine Protein (NEGATIVE) mg/dL Urine Glucose (UA) (NEGATIVE) mg/dL Urine Ketones (NEGATIVE) mg/dL Urine Occult Blood (NEGATIVE) Urine Nitrite (NEGATIVE) Urine Bilirubin (NEGATIVE) Urine Urobilinogen (<2.0) EU/dL Ur Leukocyte Esterase (NEGATIVE) SARS-CoV-2 RNA (DARLIN) NEGATIVE (NEGATIVE) 03/24/21 03/24/21 03/24/21 Range/Units 18:46 20:05 22:15 WBC (4.0-11.0) K/uL RBC (4.50-5.90) M/uL Hgb (13.0-17.0) g/dL Hct (38.0-50.0) % MCV (80.0-98.0) fL MCH (27.0-32.0) pg MCHC (31.0-37.0) g/dL RDW Std Deviation (28.0-62.0) fl RDW Coeff of [place] (11.0-15.0) % Plt Count (150-400) K/uL MPV (7.40-12.00) fL Neut % (Auto) (48.0-80.0) % Lymph % (Auto) (16.0-40.0) % [place] % (Auto) (0.0-15.0) % Eos % (Auto) (0.0-7.0) % Baso % (Auto) (0.0-1.5) % Neut # (Auto) (1.4-5.7) K/uL Lymph # (Auto) (0.6-2.4) K/uL [place] # (Auto) (0.0-0.8) K/uL Eos # (Auto) (0.0-0.7) K/uL Baso # (Auto) (0.0-0.1) K/uL Nucleated RBC % /100WBC Nucleated RBCs # K/uL INR APTT (18.6-31.3) SEC D-Dimer, Quantitative (0.0-0.50) mg/L FEU Sodium (136-148) mmol/L Potassium (3.5-5.1) mmol/L Chloride (98-107) mmol/L Carbon Dioxide (21.0-32.0) mmol/L BUN (7.0-18.0) mg/dL Creatinine (0.8-1.3) mg/dL Est Cr Clr Drug Dosing Estimated GFR (MDRD) ml/min Glucose (74-106) mg/dL Hemoglobin A1c (4.5 - 6.2) % Calcium (8.5-10.1) mg/dL Total Bilirubin (0.2-1.0) mg/dL AST (15-37) IU/L ALT (14-63) IU/L Alkaline Phosphatase (46-116) U/L Troponin I < 0.050 (0.000-0.056) ng/mL Total Protein (6.4-8.2) g/dL Albumin (3.4-5.0) g/dL Globulin (2.6-4.0) g/dL Albumin/Globulin Ratio (0.9-1.6) Triglycerides 56 (0-200) mg/dL Cholesterol 141 (50-200) mg/dL LDL Cholesterol, Calc 67 (60-180) mg/dL VLDL Cholesterol 11 (5-55) mg/dL HDL Cholesterol 63 H (40-60) mg/dL Cholesterol/HDL Ratio 2.2 L (3.3-6.0) Lipase (73-393) U/L TSH, Ultra Sensitive 0.64 (0.36-3.74) uIU/mL Urine Color YELLOW Urine Appearance CLEAR Urine pH 7.5 (5.0-8.0) Ur Specific [place] 1.010 (1.001-1.035) Urine Protein NEGATIVE (NEGATIVE) mg/dL Urine Glucose (UA) NEGATIVE (NEGATIVE) mg/dL Urine Ketones NEGATIVE (NEGATIVE) mg/dL Urine Occult Blood NEGATIVE (NEGATIVE) Urine Nitrite NEGATIVE (NEGATIVE) Urine Bilirubin NEGATIVE (NEGATIVE) Urine Urobilinogen 1.0 (<2.0) EU/dL Ur Leukocyte Esterase NEGATIVE (NEGATIVE) SARS-CoV-2 RNA (DARLIN) (NEGATIVE) 03/25/21 03/25/21 03/25/21 Range/Units 06:15 06:15 11:18 WBC 9.07 (4.0-11.0) K/uL RBC 3.44 L (4.50-5.90) M/uL Hgb 11.9 L (13.0-17.0) g/dL Hct 35.3 L (38.0-50.0) % MCV 102.6 H (80.0-98.0) fL MCH 34.6 H (27.0-32.0) pg MCHC 33.7 (31.0-37.0) g/dL RDW Std Deviation 52.1 (28.0-62.0) fl RDW Coeff of [place] 14 (11.0-15.0) % Plt Count 300 (150-400) K/uL MPV 9.30 (7.40-12.00) fL Neut % (Auto) 82.1 H (48.0-80.0) % Lymph % (Auto) 6.7 L (16.0-40.0) % [place] % (Auto) 9.7 (0.0-15.0) % Eos % (Auto) 1.3 (0.0-7.0) % Baso % (Auto) 0.2 (0.0-1.5) % Neut # (Auto) 7.4 H (1.4-5.7) K/uL Lymph # (Auto) 0.6 (0.6-2.4) K/uL [place] # (Auto) 0.9 H (0.0-0.8) K/uL Eos # (Auto) 0.1 (0.0-0.7) K/uL Baso # (Auto) 0.0 (0.0-0.1) K/uL Nucleated RBC % 0.0 /100WBC Nucleated RBCs # 0 K/uL INR APTT (18.6-31.3) SEC D-Dimer, Quantitative (0.0-0.50) mg/L FEU Sodium 135 L (136-148) mmol/L Potassium 4.1 (3.5-5.1) mmol/L Chloride 100 (98-107) mmol/L Carbon Dioxide 23.6 (21.0-32.0) mmol/L BUN 7 (7.0-18.0) mg/dL Creatinine 0.6 L (0.8-1.3) mg/dL Est Cr Clr Drug Dosing 120.88 Estimated GFR (MDRD) > 60.0 ml/min Glucose 95 (74-106) mg/dL Hemoglobin A1c (4.5 - 6.2) % Calcium 8.0 L (8.5-10.1) mg/dL Total Bilirubin (0.2-1.0) mg/dL AST (15-37) IU/L ALT (14-63) IU/L Alkaline Phosphatase (46-116) U/L Troponin I 0.580 H* (0.000-0.056) ng/mL Total Protein (6.4-8.2) g/dL Albumin (3.4-5.0) g/dL Globulin (2.6-4.0) g/dL Albumin/Globulin Ratio (0.9-1.6) Triglycerides (0-200) mg/dL Cholesterol (50-200) mg/dL LDL Cholesterol, Calc (60-180) mg/dL VLDL Cholesterol (5-55) mg/dL HDL Cholesterol (40-60) mg/dL Cholesterol/HDL Ratio (3.3-6.0) Lipase (73-393) U/L TSH, Ultra Sensitive (0.36-3.74) uIU/mL Urine Color Urine Appearance Urine pH (5.0-8.0) Ur Specific [place] (1.001-1.035) Urine Protein (NEGATIVE) mg/dL Urine Glucose (UA) (NEGATIVE) mg/dL Urine Ketones (NEGATIVE) mg/dL Urine Occult Blood (NEGATIVE) Urine Nitrite (NEGATIVE) Urine Bilirubin (NEGATIVE) Urine Urobilinogen (<2.0) EU/dL Ur Leukocyte Esterase (NEGATIVE) SARS-CoV-2 RNA (DARLIN) (NEGATIVE) Med Orders - Current: Current Medications Acetaminophen (Acetaminophen 325 Mg Tab) 650 mg PO Q4H PRN PRN Reason: Pain (Mild 1-3)/fever Albuterol/Ipratropium (Albuterol/Ipratropium 3.0-0.5 Mg/3 Ml Neb Soln) 3 ml NEB Q4HRRT PRN PRN Reason: Shortness Of Breath/wheezing Aspirin (Aspirin 81 Mg Tab.Ec) 81 mg PO DAILY [facility] Last Admin: 03/25/21 09:04 Dose: 81 mg Documented by: Hydromorphone HCl (Hydromorphone 1 Mg/Ml Syringe) 1 mg IVPUSH Q6H PRN PRN Reason: Pain Last Admin: 03/25/21 06:26 Dose: 1 mg Documented by: Pantoprazole Sodium 40 mg/ (Sodium Chloride) 10 mls @ 300 mls/hr IV Q24H [facility] Last Admin: 03/24/21 21:55 Dose: 300 mls/hr Documented by: Lisinopril (Lisinopril 10 Mg Tab) 40 mg PO QAM [facility] Last Admin: 03/25/21 09:03 Dose: 40 mg Documented by: Nitroglycerin (Nitroglycerin 0.4 Mg Tab.Sl) 0.4 mg SL Q5M PRN PRN Reason: Chest Pain Last Admin: 03/25/21 10:00 Dose: 0.4 mg Documented by: Ondansetron HCl (Ondansetron 4 Mg/2 Ml Sdv) 4 mg IVPUSH Q4H PRN PRN Reason: Pain Prednisone (Prednisone 5 Mg Tab) 5 mg PO DAILY PRN PRN Reason: Rheumatoid Arthritis Discontinued Medications Aspirin (Aspirin 81 Mg Tab.Chew) 324 mg PO ONETIME ONE Stop: 03/24/21 15:56 Last Admin: 03/24/21 16:18 Dose: Not Given Documented by: Aspirin (Aspirin 81 Mg Tab.Chew) 244 mg PO ONETIME ONE Stop: 03/24/21 15:58 Last Admin: 03/24/21 16:17 Dose: 244 mg Documented by: Enoxaparin Sodium (Enoxaparin 150 Mg/1 Ml Syringe) 120 mg SUBCUT ONETIME ONE Stop: 03/25/21 12:31 Last Admin: 03/25/21 14:51 Dose: 120 mg Documented by: Enoxaparin Sodium (Enoxaparin 60 Mg/0.6 Ml Syringe) Confirm Administered Dose 120 mg .ROUTE .STK-MED ONE Stop: 03/25/21 14:49 Last Admin: 03/25/21 14:56 Dose: 120 mg Documented by: Sodium Chloride (Normal Saline) 1,000 mls @ 999 mls/hr IV STAT ONE Stop: 03/24/21 16:58 Last Admin: 03/24/21 16:18 Dose: 999 mls/hr Documented by: Pantoprazole Sodium 40 mg/ (Sodium Chloride) 10 mls @ 300 mls/hr IV NOW ONE Stop: 03/25/21 10:01 Last Admin: 03/25/21 09:58 Dose: 300 mls/hr Documented by: Influenza Virus Vaccine (Pharmacy To Dose - Influenza Vaccine) 1 each IM ONETIME ONE Stop: 03/25/21 01:59 Influenza Virus Vaccine (Flu Vacc [id number](6mos Up)/Pf 60 Mcg/0.5 Ml Syringe) 60 mcg IM .ONCE ONE Stop: 03/25/21 10:01 Last Admin: 03/25/21 11:53 Dose: Not Given Documented by: Iopamidol (Iopamidol 755 Mg/Ml 500 Ml Multipack Bottle) 100 ml IVPUSH ONETIME STA Stop: 03/24/21 18:17 Last Admin: 03/24/21 18:16 Dose: 100 ml Documented by: Ketorolac Tromethamine (Ketorolac 30 Mg/Ml Sdv) 30 mg IVPUSH ONETIME ONE Stop: 03/25/21 11:04 Last Admin: 03/25/21 11:51 Dose: 30 mg Documented by: Methylprednisolone Sodium Succinate (Methylprednisolone Sodium Succinate 125 Mg/2 Ml Sdv) 125 mg IVPUSH ONETIME ONE Stop: 03/25/21 11:04 Last Admin: 03/25/21 11:51 Dose: 125 mg Documented by: Morphine Sulfate (Morphine 4 Mg/Ml Vial) 4 mg IVPUSH ONETIME ONE Stop: 03/24/21 15:57 Last Admin: 03/24/21 16:17 Dose: 4 mg Documented by: Morphine Sulfate (Morphine 4 Mg/Ml Vial) 4 mg IVPUSH ONETIME ONE Stop: 03/24/21 17:04 Last Admin: 03/24/21 17:21 Dose: 4 mg Documented by: Morphine Sulfate (Morphine 2 Mg/Ml Syringe) 2 mg IVPUSH Q4H PRN PRN Reason: Pain (severe 7-10) Last Admin: 03/24/21 21:51 Dose: 2 mg Documented by: Morphine Sulfate (Morphine 2 Mg/Ml Syringe) 4 mg IVPUSH ONETIME ONE Stop: 03/25/21 11:03 Last Admin: 03/25/21 11:53 Dose: 4 mg Documented by: Nicotine (Nicotine 14 Mg/24 Hr Patch) 14 mg TRDERM ONETIME ONE Stop: 03/24/21 18:38 Last Admin: 03/24/21 18:45 Dose: 14 mg Documented by: Nitroglycerin (Nitroglycerin 0.4 Mg Tab.Sl) 0.5 mg SL Q5M PRN PRN Reason: Chest Pain
[2021-03-25 15:07] VITALS: BP 186/85; PULSE 88
== END 2021-03-25 14:50 ==
LOC: MW.ED 15:08 → MW.MS 19:46
PROVIDERS: ADMIT Student in an Organized Health Care Education/Training Program; ATTEND Student in an Organized Health Care Education/Training Program
DX: R07.9 Chest pain, unspecified (principal); I10 Essential (primary) hypertension; M06.9 Rheumatoid arthritis, unspecified; K50.90 Crohn's disease, unspecified, without complications; K21.9 Gastro-esophageal reflux disease without esophagitis; Z20.822 Contact with and (suspected) exposure to COVID-19; Z88.1 Allergy status to other antibiotic agents; Z88.8 Allergy status to other drugs, medicaments and biological substances; Z88.2 Allergy status to sulfonamides; Z87.891 Personal history of nicotine dependence; Z79.82 Long term (current) use of aspirin; Z91.048 Other nonmedicinal substance allergy status; Z79.899 Other long term (current) drug therapy; Z90.49 Acquired absence of other specified parts of digestive tract
CPT/HCPCS: 36415; 71045; 71275; 80048; 80053; 80061; 81003; 83036; 83690; 84443; 84484; 85025; 85379; 85610; 85730; 87635; 93005; 96372; 96374; 96375; 96376; 99285; A9270; C9113; G0378; J1170; J1650; J1885; J2270; J2930; J7030; Q9967; U0002